=== PATIENT | female | born 1980 | race Two or more races ===

== ENCOUNTER 2020-07-15 14:29 | Outpatient (REF) | payer OTHER, SELFPAY | END 2020-07-15 14:30 | disposition home or self-care (01) | LOC: HO.LAB 14:29 | PROVIDERS: PCP Internal Medicine; Visit Provider Internal Medicine | DX: Z20.828 Contact with and (suspected) exposure to other viral communicable diseases (principal) | CPT/HCPCS: C9803; U0003 ==

== ENCOUNTER 2020-07-22 17:24 | Outpatient (REF) | payer OTHER, SELFPAY | END 2020-07-22 17:25 | disposition home or self-care (01) | LOC: HO.LAB 17:24 | PROVIDERS: Visit Provider Internal Medicine | DX: Z20.828 Contact with and (suspected) exposure to other viral communicable diseases (principal) | CPT/HCPCS: C9803; U0003 ==

== ENCOUNTER → 2022-01-05 15:14 | Outpatient (BNVA) | payer OTHER, SELFPAY | PROVIDERS: Visit Provider Internal Medicine | DX: Z51.81 Encounter for therapeutic drug level monitoring (principal); F11.20 Opioid dependence, uncomplicated | CPT/HCPCS: 80305 ==

== ENCOUNTER 2022-01-05 17:34 | Outpatient (REF) | payer OTHER, SELFPAY ==
[2022-01-05 18:09] LABS: Fentanyl, urine POSITIVE (Not Detect)
== END 2022-01-05 17:35 | disposition home or self-care (01) ==
LOC: HO.LNP 17:34
PROVIDERS: Visit Provider Internal Medicine
DX: F11.20 Opioid dependence, uncomplicated (principal)
CPT/HCPCS: 80307; 99202

== ENCOUNTER → 2022-01-14 14:44 | Outpatient (BNVA) | payer OTHER, SELFPAY | PROVIDERS: Visit Provider Internal Medicine | DX: F11.20 Opioid dependence, uncomplicated (principal) | CPT/HCPCS: 80305; 99212 ==

== ENCOUNTER → 2022-01-21 14:01 | Outpatient (BNVA) | payer OTHER, SELFPAY | PROVIDERS: Visit Provider Internal Medicine | DX: F11.20 Opioid dependence, uncomplicated (principal) | CPT/HCPCS: 80305; 99212 ==

== ENCOUNTER 2022-03-09 15:41 | Outpatient (REF) | payer OTHER, SELFPAY ==
[2022-03-09 18:38] LABS: CT PCR NOT DETECTED (Not Detect.); NG PCR NOT DETECTED (Not Detect.)
[2022-03-12 14:37] LABS: HPV mRNA E6/E7 rflx Not Detected (Not Detected)
== END 2022-03-09 15:42 | disposition home or self-care (01) ==
LOC: HO.LAB 15:41
PROVIDERS: Visit Provider Advanced Practice Midwife
DX: Z01.419 Encounter for gynecological examination (general) (routine) without abnormal findings (principal); Z11.51 Encounter for screening for human papillomavirus (HPV)
CPT/HCPCS: 87491; 87591; 87624; 88142

== ENCOUNTER → 2022-05-24 13:26 | Outpatient (BNVA) | payer OTHER, SELFPAY | PROVIDERS: Visit Provider Advanced Practice Midwife | DX: N64.59 Other signs and symptoms in breast (principal) | CPT/HCPCS: 99212 ==

== ENCOUNTER 2022-05-26 09:21 | Outpatient (REF) | payer OTHER, SELFPAY ==
--- NOTE | ~2022-05-26 | MM_ITS ---
EXAMINATION: MM DIAGNOSTIC DIGITAL BREAST TOMOSYNTHESIS, BILATERAL US TARGETED BREAST, LEFT CLINICAL INFORMATION: Left breast lump. The lifetime risk of breast cancer based on the Tyrer-Cuzick Model is 11.9%. COMPARISON: Mammography: 03/27/2018 and studies dating back to 11/11/2009. TECHNIQUE: Digital breast tomosynthesis is performed in both the craniocaudal and mediolateral oblique views along with computer-aided detection (CAD). Synthesized 2D images are generated from the tomosynthesis. Targeted left breast ultrasound. FINDINGS: The breasts are extremely dense, which lowers the sensitivity of mammography (ACR BI-RADS breast composition category D). No new abnormal dominant mass or suspicious grouping of microcalcifications is identified. There is again noted to be a medial periareolar density measuring approximately 1.4 x 0.7 x 0.9 cm in size which is stable compared to the previous studies dating back to 2009. Targeted ultrasound evaluation again demonstrates what appears to be an encapsulated oval heterogeneous lesion with hypoechoic portions as well as hyperechoic regions with the appearance of fat. This has the appearance of a hamartoma and is unchanged from previous ultrasound of 01/22/2018 and 06/16/2015. It measures approximately 1.5 x 0.6 x 1.9 cm in size. There is a small amount of internal vascularity. Lesion is wider than it is tall. MM/MM tomosynthesis diagnostic BI IMPRESSION: There are no significant changes from prior study. The left breast palpable abnormality medial periareolar region represents a stable hamartoma which has been worked up multiple times in the past. ASSESSMENT: BI-RADS 2: Benign RECOMMENDATION: Routine annual mammography screening. This patient's information was entered into a reminder system with a target due date for their next mammogram.
== END 2022-05-26 09:22 | disposition home or self-care (01) ==
LOC: HO.MAMMO 09:21
PROVIDERS: PCP Student in an Organized Health Care Education/Training Program; Visit Provider Advanced Practice Midwife
DX: N64.59 Other signs and symptoms in breast (principal)
CPT/HCPCS: 76642; 77062; 77066

== ENCOUNTER → 2022-06-01 10:13 | Outpatient (BNVA) | payer OTHER, SELFPAY | PROVIDERS: PCP Student in an Organized Health Care Education/Training Program; Visit Provider Advanced Practice Midwife | DX: N63.20 Unspecified lump in the left breast, unspecified quadrant (principal); R03.0 Elevated blood-pressure reading, without diagnosis of hypertension | CPT/HCPCS: 99212 ==

== ENCOUNTER 2023-03-15 14:15 | Outpatient (AMB) | payer OTHER, SELFPAY ==
--- NOTE | 2023-03-15 14:19 | MHC.OFFVIS ---
Intake Vital Signs 03/15/23 14:25 BP 130/78 Blood Pressure Location Lt radial Position Sitting Pulse 69 Pulse Source Pulse Oximeter Pulse Oximetry (%) 98 Oxygen Delivery Method Room Air Intake Visit Reasons: MAT Restart Intake Note: The patient presents for a restart Gasateria Attendant Required: No Allergies acetaminophen [From Vicodin] Allergy (Severe, Verified 03/15/23 14:28) Hives, Tongue swelling hydrocodone [From Vicodin] Allergy (Severe, Verified 03/15/23 14:28) Hives, Tongue swelling azithromycin [AZITHROMYCIN] Allergy (Unknown, Verified 03/15/23 14:28) Unknown erythromycin base [ERYTHROMYCIN BASE] Allergy (Unknown, Verified 03/15/23 14:28) Liver Inflammation Sulfa (Sulfonamide Antibiotics) Allergy (Unknown, Verified 03/15/23 14:28) Hives sulfamethoxazole [From Bactrim] Allergy (Unknown, Verified 03/15/23 14:28) Liver Inflammation trimethoprim [From Bactrim] Allergy (Unknown, Verified 03/15/23 14:28) Liver Inflammation Do you need a note to return to daycare/school/sports/work: No HPI MAT Restart HPI Details Patient presents for OUD intake and evaluation Seen last year by by [facility] Buying 30mg pressed pills 3-4 days Oxycodone for almost 5 years following numerous surgeries Last year overdose and entered treatment No history of ATS admission 2 lifetime overdoses Stopped 3 days ag, extrememly sick took one pill yesterday at 9pm Family hx: Father in recovery from OUD Medical history -HTN -Depression and anxiety (providers at [facility]) -asthma Need medication list Patient tearful, frustrated with withdrawal sx and challenges of stopping opioids. Discussed induction methods, patient agreeable to q2 hour dosing comfort medications reviewed with patient. [facility] Medical History Abnormal Pap smear of cervix Opioid use disorder Family History Father Stroke Heart attack Diabetes Maternal Aunt Breast cancer Social History Household Members: Spouse and Children Housing: House Alcohol intake: never Patient Tobacco Use Status: Current everyday Tobacco user Tobacco use type: Cigarette Cigarettes Per Day: 6 Years Smoked: 20 Sexual orientation: Straight/Heterosexual Gender identity: Female Review of Systems Const Reports as per HPI, Reports body aches, Reports chills and Reports difficulty sleeping Physical Exam Vital Signs: Last Vital Signs Pulse 69 03/15/23 14:25 BP 130/78 03/15/23 14:25 Pulse Ox 98 03/15/23 14:25 Oxygen Delivery Method Room Air 03/15/23 14:25 Const General: cooperative, anxious and well groomed Nutritional Appearance: average body habitus Assessment & Plan Assessment & Plan (1) Opioid use disorder: Code(s): F11.90 - Opioid use, unspecified, uncomplicated Plan: suboxone indiction per instructions comfort medications prior to starting induction follow up via phone in 2 days to assess Coding Level of Care Code New Pt Level 4 (49932) Diagnoses Opioid use disorder F11.90
[2023-03-15 14:25] VITALS: BP 130/78; PULSE 69; O2SAT 98
== END 2023-03-15 15:24 | disposition home or self-care (01) ==
LOC: HO.HCC 14:15
PROVIDERS: PCP Student in an Organized Health Care Education/Training Program; Visit Provider Nurse Practitioner Psychiatric/Mental Health
DX: F11.90 Opioid use, unspecified, uncomplicated (principal)
CPT/HCPCS: 99204

== ENCOUNTER → 2023-03-15 14:15 | Outpatient (BNVA) | payer OTHER, SELFPAY | PROVIDERS: PCP Student in an Organized Health Care Education/Training Program; Visit Provider Nurse Practitioner Psychiatric/Mental Health | DX: Z51.81 Encounter for therapeutic drug level monitoring (principal); F11.20 Opioid dependence, uncomplicated | CPT/HCPCS: 99202 ==

== ENCOUNTER 2023-03-20 14:15 | Outpatient (AMB) | payer OTHER, SELFPAY ==
--- NOTE | 2023-03-20 14:16 | A.OFFVIS_ITS ---
Intake Vital Signs 03/20/23 14:27 BP 126/88 Blood Pressure Location Lt radial Position Sitting Pulse 71 Pulse Source Pulse Oximeter Pulse Oximetry (%) 99 Oxygen Delivery Method Room Air Intake Visit Reasons: MAT Visit Intake Note: the patient is here for a mat visit Stem Crusher Required: No Allergies acetaminophen [From Vicodin] Allergy (Severe, Verified 03/20/23 14:16) Hives, Tongue swelling hydrocodone [From Vicodin] Allergy (Severe, Verified 03/20/23 14:16) Hives, Tongue swelling azithromycin [AZITHROMYCIN] Allergy (Unknown, Verified 03/20/23 14:16) Unknown erythromycin base [ERYTHROMYCIN BASE] Allergy (Unknown, Verified 03/20/23 14:16) Liver Inflammation Sulfa (Sulfonamide Antibiotics) Allergy (Unknown, Verified 03/20/23 14:16) Hives sulfamethoxazole [From Bactrim] Allergy (Unknown, Verified 03/20/23 14:16) Liver Inflammation trimethoprim [From Bactrim] Allergy (Unknown, Verified 03/20/23 14:16) Liver Inflammation Do you need a note to return to daycare/school/sports/work: No HPI MAT Visit HPI Details Patient presents for follow up Has been taking 2mg BID Appetite improving Still having withdrawal sx. Encouraged patient to increase dose Tearful, sharing challenges with early recovery and conflict within family. [facility] Medical History Abnormal Pap smear of cervix Opioid use disorder Family History Father Stroke Heart attack Diabetes Maternal Aunt Breast cancer Social History Household Members: Spouse and Children Housing: House Alcohol intake: never Patient Tobacco Use Status: Current everyday Tobacco user Tobacco use type: Cigarette Cigarettes Per Day: 6 Years Smoked: 20 Sexual orientation: Straight/Heterosexual Gender identity: Female Review of Systems Const Reports as per HPI and Reports no additional complaints Physical Exam Vital Signs: Last Vital Signs Pulse 71 03/20/23 14:27 BP 126/88 03/20/23 14:27 Pulse Ox 99 03/20/23 14:27 Oxygen Delivery Method Room Air 03/20/23 14:27 Const General: cooperative, healthy appearing and no acute distress Orientation/consciousness: patient oriented x3 Neuro General: patient oriented x3 Psych Appearance: well kempt Affect: normal affect Attitude: cooperative Thought process: Normal thought process present Thought content: Normal thought content present Insight: Good insight present (Psych) Judgement: Good judgement present (Psych) Results AMB 14 Panel Urine Drug Screen Urine Marijuana (THC) Positive Last Edit by Olive Tay CMA on 03/20/23 14:30 Urine Cocaine Positive Last Edit by Olive Tay CMA on 03/20/23 14:30 Urine Morphine Negative Last Edit by Olive Tay CMA on 03/20/23 14:30 Urine Methamphetamine Negative Last Edit by Olive Tay CMA on 03/20/23 14:30 Urine Amphetamine Negative Last Edit by Olive Tay CMA on 03/20/23 14:3 0 Urine Benzodiazepine Negative Last Edit by Olive Tay CMA on 03/20/23 14:30 Urine Barbiturates Negative Last Edit by Olive Tay CMA on 03/20/23 14: 30 Urine Methadone Negative Last Edit by Olive Tay CMA on 03/20/23 14:30 Urine Buprenorphine Positive Last Edit by Olive Tay CMA on 03/20/23 14 :30 Urine Tricyclic Antidepressant Negative Last Edit by Olive Tay CMA on 03/20/23 14:30 Urine MDMA Negative Last Edit by Olive Tay CMA on 03/20/23 14:30 Urine Oxycodone Negative Last Edit by Olive Tay CMA on 03/20/23 14:30 Urine Phencyclidine Negative Last Edit by Olive Tay CMA on 03/20/23 14 :30 Urine Propoxyphene Negative Last Edit by Olive Tay CMA on 03/20/23 14: 30 Results Reviewed Results Reviewed: Laboratory Last Values POC Urine Buprenorphine Positive 03/20/23 14:28 POC Urine Morphine Negative 03/20/23 14:28 POC Urine Oxycodone Negative 03/20/23 14:28 POC Urine Methadone Negative 03/20/23 14:28 POC Urine Propoxyphene Negative 03/20/23 14:28 POC Urine Barbiturates Negative 03/20/23 14:28 POC U Tricyclic Antidpr Negative 03/20/23 14:28 POC Urine PCP Negative 03/20/23 14:28 POC Ur Amphetamines Negative 03/20/23 14:28 POC Ur Methamphetamine Negative 03/20/23 14:28 POC Urine MDMA Negative 03/20/23 14:28 POC Ur Benzodiazepine Negative 03/20/23 14:28 POC Urine Cocaine Positive 03/20/23 14:28 POC Ur Marijuana (THC) Positive 03/20/23 14:28 Assessment & Plan Assessment & Plan (1) Opioid use disorder: Code(s): F11.90 - Opioid use, unspecified, uncomplicated Plan: * increase suboxone dose to 4mg TID * risk reduction discussion * follow up 3 weeks (due to preplanned vacation for patient) Orders: Orders AMB 14 Panel Urine Drug Screen 03/20/23 Z51.81 - Encounter for therapeutic drug level monitoring Medications: New buprenorphine-naloxone 4-1 mg (Suboxone) 1 film sublingual TID 64 ea 0RF Discontinued buprenorphine-naloxone 8-2 mg (Suboxone) Discontinued Reason: Doctor's Order 1 film sublingual BID 10 ea 0RF Coding Level of Care Code Est Pt Level 4 (58290) Diagnoses Opioid use disorder F11.90
[2023-03-20 14:27] VITALS: BP 126/88; PULSE 71; O2SAT 99
== END 2023-03-20 15:01 | disposition home or self-care (01) ==
LOC: HO.HCC 14:15
PROVIDERS: PCP Student in an Organized Health Care Education/Training Program; Visit Provider Nurse Practitioner Psychiatric/Mental Health
DX: F11.90 Opioid use, unspecified, uncomplicated (principal)
CPT/HCPCS: 99214

== ENCOUNTER → 2023-03-20 14:15 | Outpatient (BNVA) | payer OTHER, SELFPAY | PROVIDERS: PCP Student in an Organized Health Care Education/Training Program; Visit Provider Nurse Practitioner Psychiatric/Mental Health | DX: F11.20 Opioid dependence, uncomplicated (principal); F17.210 Nicotine dependence, cigarettes, uncomplicated; Z51.81 Encounter for therapeutic drug level monitoring; Z79.899 Other long term (current) drug therapy | CPT/HCPCS: 80305; 99212 ==

== ENCOUNTER 2023-04-20 14:27 | Outpatient (AMB) | payer OTHER, SELFPAY ==
--- NOTE | 2023-04-20 14:32 | A.OFFVIS_ITS ---
Intake Vital Signs 04/20/23 14:47 BP 130/72 Blood Pressure Location Lt radial Position Sitting Pulse 68 Pulse Source Pulse Oximeter Pulse Oximetry (%) 96 Oxygen Delivery Method Room Air Intake Visit Reasons: MAT Visit Intake Note: the patient presents for a mat visit Machine Fastener Required: No Allergies acetaminophen [From Vicodin] Allergy (Severe, Verified 04/20/23 14:35) Hives, Tongue swelling hydrocodone [From Vicodin] Allergy (Severe, Verified 04/20/23 14:35) Hives, Tongue swelling azithromycin [AZITHROMYCIN] Allergy (Unknown, Verified 04/20/23 14:35) Unknown erythromycin base [ERYTHROMYCIN BASE] Allergy (Unknown, Verified 04/20/23 14:35) Liver Inflammation Sulfa (Sulfonamide Antibiotics) Allergy (Unknown, Verified 04/20/23 14:35) Hives sulfamethoxazole [From Bactrim] Allergy (Unknown, Verified 04/20/23 14:35) Liver Inflammation trimethoprim [From Bactrim] Allergy (Unknown, Verified 04/20/23 14:35) Liver Inflammation Do you need a note to return to daycare/school/sports/work: No HPI MAT Visit HPI Details Patient presents for OUD treatment follow up Rpeorts that she continues to abstain from opiates Had teeth pulled earlier in the day, face appearing swollen 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 [facility] Medical History Abnormal Pap smear of cervix Opioid use disorder Family History Father Stroke Heart attack Diabetes Maternal Aunt Breast cancer Social History Household Members: Spouse and Children Housing: House Alcohol intake: never Patient Tobacco Use Status: Current everyday Tobacco user Tobacco use type: Cigarette Cigarettes Per Day: 6 Years Smoked: 20 Sexual orientation: Straight/Heterosexual Gender identity: Female Review of Systems Const Reports as per HPI and Reports no additional complaints Physical Exam Vital Signs: Last Vital Signs Pulse 68 04/20/23 14:47 BP 130/72 04/20/23 14:47 Pulse Ox 96 04/20/23 14:47 Oxygen Delivery Method Room Air 04/20/23 14:47 Const General: cooperative Psych Appearance: well kempt Speech and movement: Clear speech present Affect: Sad affect present Results AMB 14 Panel Urine Drug Screen Urine Marijuana (THC) Positive Last Edit by Olive Tay CMA on 04/20/23 15:31 Urine Cocaine Positive Last Edit by Olive Tay CMA on 04/20/23 15:31 Urine Morphine Negative Last Edit by Olive Tay CMA on 04/20/23 15:31 Urine Methamphetamine Negative Last Edit by Olive Tay CMA on 04/20/23 15:31 Urine Amphetamine Negative Last Edit by Olive Tay CMA on 04/20/23 15:3 1 Urine Benzodiazepine Negative Last Edit by Olive Tay CMA on 04/20/23 15:31 Urine Barbiturates Negative Last Edit by Olive Tay CMA on 04/20/23 15: 31 Urine Methadone Negative Last Edit by Olive Tay CMA on 04/20/23 15:31 Urine Buprenorphine Positive Last Edit by Olive Tay CMA on 04/20/23 15 :31 Urine Tricyclic Antidepressant Negative Last Edit by Olive Tay CMA on 04/20/23 15:31 Urine MDMA Negative Last Edit by Olive Tay CMA on 04/20/23 15:31 Urine Oxycodone Negative Last Edit by Olive Tay CMA on 04/20/23 15:31 Urine Phencyclidine Negative Last Edit by Olive Tay CMA on 04/20/23 15 :31 Urine Propoxyphene Negative Last Edit by Olive Tay CMA on 04/20/23 15: 31 Results Reviewed Results Reviewed: Laboratory Last Values POC Urine Buprenorphine Positive 04/20/23 14:35 POC Urine Morphine Negative 04/20/23 14:35 POC Urine Oxycodone Negative 04/20/23 14:35 POC Urine Methadone Negative 04/20/23 14:35 POC Urine Propoxyphene Negative 04/20/23 14:35 POC Urine Barbiturates Negative 04/20/23 14:35 POC U Tricyclic Antidpr Negative 04/20/23 14:35 POC Urine PCP Negative 04/20/23 14:35 POC Ur Amphetamines Negative 04/20/23 14:35 POC Ur Methamphetamine Negative 04/20/23 14:35 POC Urine MDMA Negative 04/20/23 14:35 POC Ur Benzodiazepine Negative 04/20/23 14:35 POC Urine Cocaine Positive 04/20/23 14:35 POC Ur Marijuana (THC) Positive 04/20/23 14:35 Assessment & Plan Assessment & Plan (1) Opioid use disorder: Code(s): F11.90 - Opioid use, unspecified, uncomplicated Plan: * continue suboxone at current dose * followup 2 weeks Orders: Orders AMB 14 Panel Urine Drug Screen 04/20/23 Z51.81 - Encounter for therapeutic drug level monitoring Medications: Refilled buprenorphine-naloxone 4-1 mg (Suboxone) 1 film sublingual TID 36 ea 0RF Coding Level of Care Code Est Pt Level 3 (78627) Diagnoses Opioid use disorder F11.90
[2023-04-20 14:47] VITALS: BP 130/72; PULSE 68; O2SAT 96
== END 2023-04-20 15:28 | disposition home or self-care (01) ==
LOC: HO.HCC 14:27
PROVIDERS: PCP Student in an Organized Health Care Education/Training Program; Visit Provider Nurse Practitioner Psychiatric/Mental Health
DX: F11.90 Opioid use, unspecified, uncomplicated (principal)
CPT/HCPCS: 99213

== ENCOUNTER → 2023-04-20 14:27 | Outpatient (BNVA) | payer OTHER, SELFPAY | PROVIDERS: PCP Student in an Organized Health Care Education/Training Program; Visit Provider Nurse Practitioner Psychiatric/Mental Health | DX: F11.20 Opioid dependence, uncomplicated (principal) | CPT/HCPCS: 80305; 99212 ==

== ENCOUNTER 2023-09-29 10:55 | Outpatient (AMB) | payer OTHER, SELFPAY ==
[2023-09-29 10:59] VITALS: BP 120/70
--- NOTE | 2023-09-29 10:59 | MHC.AM.SUB ---
Intake Vital Signs 09/29/23 10:59 BP 120/70 Blood Pressure Location Rt brachial Position Sitting Comment pulse ox not working due to pts fingernails. Good color and good cap refil Intake Visit Reasons: MAT Restart Allergies acetaminophen [From Vicodin] Allergy (Severe, Verified 04/20/23 14:35) Hives, Tongue swelling hydrocodone [From Vicodin] Allergy (Severe, Verified 04/20/23 14:35) Hives, Tongue swelling azithromycin [AZITHROMYCIN] Allergy (Unknown, Verified 04/20/23 14:35) Unknown erythromycin base [ERYTHROMYCIN BASE] Allergy (Unknown, Verified 04/20/23 14:35) Liver Inflammation Sulfa (Sulfonamide Antibiotics) Allergy (Unknown, Verified 04/20/23 14:35) Hives sulfamethoxazole [From Bactrim] Allergy (Unknown, Verified 04/20/23 14:35) Liver Inflammation trimethoprim [From Bactrim] Allergy (Unknown, Verified 04/20/23 14:35) Liver Inflammation Medication List - Last Reconciled 09/29/23 by Shikha Man, CELLULAR EQUIPMENT REPAIRER buprenorphine-naloxone 4-1 mg (Suboxone) 1 film sublingual TID clonidine HCl 0.1 mg PO BID ondansetron 4 mg PO Q6H PRN 4 days tizanidine 4 mg PO TID PRN HPI MAT Restart HPI Details Patient presents to re-establish care Reports she had not been using any opiates for about 4 months -- Recurrence of use 2 weeks ago Has been using 1 30mg percocet daily (likely pressed pill) Patient tearful during visit Last use reported as being last evening. Discussed restarting suboxone, importance of withdrawal sx being present Reviewed comfort medications PFSH Medical History Abnormal Pap smear of cervix Opioid use disorder Family History Father Stroke Heart attack Diabetes Maternal Aunt Breast cancer Social History Household Members: Spouse and Children Housing: House Alcohol intake: never Patient Tobacco Use Status: Current everyday Tobacco user Tobacco use type: Cigarette Cigarettes Per Day: 6 Years Smoked: 20 Sexual orientation: Straight/Heterosexual Gender identity: Female Review of Systems Const Reports as per HPI, Reports chills, Reports difficulty sleeping, Reports lethargy and Reports malaise Physical Exam Vital Signs: Last Vital Signs BP 120/70 09/29/23 10:59 Const General: cooperative and anxious Nutritional Appearance: thin Limitations: no limitations Assessment & Plan Assessment & Plan (1) Opioid use disorder: Code(s): F11.90 - Opioid use, unspecified, uncomplicated Plan: restart suboxone --provided written and verbal instruction comfort medications refilled--encouraged to start these once she got home patient declined narcan, states she has some at home follow up one week Medications: New tizanidine 4 mg PO TID PRN 20 caps 0RF muscle spasticity Changed From clonidine HCl 0.1 mg PO TID 4 days 12 tabs 0RF To clonidine HCl 0.1 mg PO BID 10 tabs 0RF Refilled ondansetron 4 mg PO Q6H 4 days PRN 20 tabs 0RF nausea and vomiting buprenorphine-naloxone 4-1 mg (Suboxone) 1 film sublingual TID 21 ea 0RF Discontinued hydroxyzine pamoate (Vistaril) Discontinued Reason: Patient Completed Course 25 mg PO TID 4 days PRN 12 caps 0RF itching gabapentin Discontinued Reason: Patient Completed Course 100 mg PO TID 21 caps 0RF Coding Level of Care Code Est Pt Level 4 (70659) Diagnoses Opioid use disorder F11.90
== END 2023-09-29 13:23 | disposition home or self-care (01) ==
PROVIDERS: PCP Student in an Organized Health Care Education/Training Program; Visit Provider Nurse Practitioner Psychiatric/Mental Health
DX: F11.90 Opioid use, unspecified, uncomplicated (principal)
CPT/HCPCS: 99214

== ENCOUNTER → 2023-09-29 10:55 | Outpatient (BNVA) | payer OTHER, SELFPAY | PROVIDERS: PCP Student in an Organized Health Care Education/Training Program; Visit Provider Nurse Practitioner Psychiatric/Mental Health | DX: F11.20 Opioid dependence, uncomplicated (principal) | CPT/HCPCS: 99212 ==

== ENCOUNTER 2024-01-19 08:01 | Outpatient (REF) | payer OTHER, SELFPAY ==
[2024-01-19 15:44] LABS: Bacterial Vaginosis PCR POSITIVE (Negative); Candida Group PCR NOT DETECTED (Not Detect); Candida glab krusei PCR NOT DETECTED (Not Detect); Trichomonas vaginalis PCR NOT DETECTED (Not Detect)
[2024-01-19 16:33] LABS: CT PCR NOT DETECTED (Not Detect.); NG PCR NOT DETECTED (Not Detect.)
== END 2024-01-19 08:02 | disposition home or self-care (01) ==
LOC: HO.LNP 08:01
PROVIDERS: PCP Student in an Organized Health Care Education/Training Program; Visit Provider Advanced Practice Midwife
DX: Z01.419 Encounter for gynecological examination (general) (routine) without abnormal findings (principal); Z20.2 Contact with and (suspected) exposure to infections with a predominantly sexual mode of transmission
CPT/HCPCS: 0352U; 0353U; 99396

== ENCOUNTER 2024-01-19 08:01 | Outpatient (AMB) | payer OTHER, SELFPAY ==
--- NOTE | 2024-01-19 08:08 | A.OFFVIS_ITS ---
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 Intake Note: wants std screens Pump Press Operator Required: No Information Interpreted: non-clinical & clinical Surveyor Geophysical Prospecting: Surveyor Geophysical Prospecting Present (Lorri Ricardo FRIEDMAN) Accompanied by: Self / Same As Patient Allergies acetaminophen [From Vicodin] Allergy (Severe, Verified 01/19/24 08:13) Hives, Tongue swelling hydrocodone [From Vicodin] Allergy (Severe, Verified 01/19/24 08:13) Hives, Tongue swelling azithromycin [AZITHROMYCIN] Allergy (Unknown, Verified 01/19/24 08:13) Unknown erythromycin base [ERYTHROMYCIN BASE] Allergy (Unknown, Verified 01/19/24 08:13) Liver Inflammation Sulfa (Sulfonamide Antibiotics) Allergy (Unknown, Verified 01/19/24 08:13) Hives sulfamethoxazole [From Bactrim] Allergy (Unknown, Verified 01/19/24 08:13) Liver Inflammation trimethoprim [From Bactrim] Allergy (Unknown, Verified 01/19/24 08:13) Liver Inflammation Is last menstrual period known: No (mirena) HPI Comments Details: She is a premenopausal woman presenting for annual examination. Doing well with no concerns. She reports she has a history of a breast lump followed at [facility] on the left side no records are available for today. She tries to eat healthy and stays active with exercise. Mirena IUD user, no menses inserted January 12 2018. Currently is sexually active. She denies vaginal itching and irritation. STI screening offered; she accepts. Denies family history of ovarian or colon cancer. FH breast cancer-M.aunt. Last pap smear 2021, negative. History of EDA 1 in 2001. Mammogram: 2022. 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 Sexual orientation: Straight/Heterosexual Gender identity: Female Female Reproductive History Menstrual control method: progestin IUCD Total pregnancies: 6 Full term: 3 Number of Living Children: 3 Ab spontaneous: 2 Ectopics: 1 Date of last pap smear: 03/10/22 Date of Mammogram: 05/26/22 Review of Systems Const All systems reviewed & are unremarkable except as noted in HPI and below Reports as per HPI Eyes Reports no additional complaints ENT Reports no additional complaints Card Reports no additional complaints Resp Reports no additional complaints GI Reports as per HPI and Reports no additional complaints Reports as per HPI Musc Reports no additional complaints Skin/Breast Reports as per HPI Neuro Reports no additional complaints Psych Reports no additional complaints Endo Reports no additional complaints Frankie/Lymph Reports no additional complaints Aller/Immun Reports no additional complaints Physical Exam Vital Signs: Last Vital Signs BP 118/68 01/19/24 08:10 BMI result Body Mass Index 26.6 Const General: cooperative, healthy appearing, no acute distress, well developed and alert Orientation/consciousness: patient oriented x3 HEENT Head: Yes normal to inspection Eyes General: appearance normal, both eyes and all related structures Neck Neck: Yes normal visual inspection Thyroid: Thyroid normal Chest Chest palpation & inspection: normal inspection of the chest, mass (Left breast medial aspect) and other (no puckering, dimpling, peau de orange, retraction, discharge, masses) Breast/axilla inspection: normal inspection of the breasts Breast/axilla palpation: normal palpation of the breasts Resp Effort & Inspection: normal respiratory effort GI Inspection: Yes normal to inspection Palpation (GI): Soft to palpation Rectal Exam - Female: deferred General: Yes bladder normal to palpation External Female Exam: normal external appearance and normal appearance of the urethra Speculum Exam - Vagina: normal appearance of the vagina, normal palpation and normal vaginal discharge Speculum Exam - Cervix: normal appearance of the cervix and normal palpation Bimanual exam- vagina & uterus: normal bimanual exam, normal palpation, uterine size normal, bladder normal to palpation, normal palpation and non-tender Bimanual Exam- Adnexa, other: no masses Skin General skin exam: no rashes or lesions noted Rashes: no rashes Neuro General: patient oriented x3 Cognition (Neuro): normal cognition Extrem General: Yes normal to inspection Psych Attitude: cooperative Thought process: Normal thought process present Assessment & Plan Assessment & Plan (1) Encounter for well woman exam with routine gynecological exam: Code(s): Z01.419 - Encounter for gynecological examination (general) (routine) without abnormal findings Category: Medical (2) Breast lump: Code(s): N63.0 - Unspecified lump in unspecified breast Category: Medical Qualifiers: Laterality: left Breast mass location: unspecified quadrant Qualified Code(s): N63.20 - Unspecified lump in the left breast, unspecified quadrant Plan Discussed: Current recommendations for pap smears per ASCCP guidelines. Breast awareness and periodic breast exams. Maintain a healthy lifestyle including a well balanced diet and routine exercise. Diagnostic mammogram and left breast ultrasound, Mammogram yearly. Sign release for medical records for breast ultrasound, MRI, biopsy pathology reports and provider notes from [facility]. Return to the office pending results for plan of care. Colonoscopy >45, or at risk sooner. Patient verbalizes understanding and agrees to the plan of care. She was given opportunity to ask questions and all questions were answered to the best of my ability. 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 This note is constructed using voice recognition software. While every effort has been made to ensure accuracy, hot dip plater errors may have been included. Orders: Orders HIV Ab/Ag Today Z20.2 - Contact with and (suspected) exposure to infections with a predominantly sexual mode of transmission Hepatitis B Core Antibody Today Z20.2 - Contact with and (suspected) exposure to infections with a predominantly sexual mode of transmission MM tomosynthesis diagnostic BI Today N63.0 - Unspecified lump in unspecified breast, Z12.31 - Encounter for screening mammogram for malignant neoplasm of breast CT NG by PCR Today Z01.419 - Encounter for gynecological examination (general) (routine) without abnormal findings Bacterial Vaginosis Panel Today Z01.419 - Encounter for gynecological examination (general) (routine) without abnormal findings Hepatitis C Antibody Reflex Today Z20.2 - Contact with and (suspected) exposure to infections with a predominantly sexual mode of transmission Syphilis Screen Today Z20.2 - Contact with and (suspected) exposure to infections with a predominantly sexual mode of transmission US breast LT complete Today N63.0 - Unspecified lump in unspecified breast Coding Level of Care Code Est Pt Prev Care 40-64y(41753) Diagnoses Encounter for well woman exam with routine gynecological exam Z01.419 Mass of left breast, unspecified quadrant N63.20 Laterality: left Breast mass location: unspecified quadrant
[2024-01-19 08:10] VITALS: BP 118/68; BMI 26.6
== END 2024-01-19 08:43 | disposition home or self-care (01) ==
PROVIDERS: PCP Student in an Organized Health Care Education/Training Program; Visit Provider Advanced Practice Midwife
DX: Z01.419 Encounter for gynecological examination (general) (routine) without abnormal findings (principal); N63.20 Unspecified lump in the left breast, unspecified quadrant
CPT/HCPCS: 99396

== ENCOUNTER → 2024-02-16 11:00 | Outpatient (BNV) | payer OTHER, SELFPAY | PROVIDERS: Visit Provider Radiology Diagnostic Radiology | DX: N63.25 Unspecified lump in the left breast, overlapping quadrants (principal) | CPT/HCPCS: 76642; 77062; 77066 ==

== ENCOUNTER 2024-02-16 11:19 | Outpatient (REF) | payer OTHER, SELFPAY ==
--- NOTE | ~2024-02-16 | MM_ITS ---
EXAMINATION: MM DIAGNOSTIC DIGITAL BREAST TOMOSYNTHESIS, BILATERAL US BREAST LIMITED, LEFT MAMMOGRAPHY: CLINICAL INFORMATION: Palpable abnormality left breast periareolar 9:00 axis, previously present, but perceptibly increasing in size since prior exam 05/26/2022 as per patient. COMPARISON: Mammography: 05/16/2022, 03/27/2018, 01/22/2018, dating back to 06/16/2015. MRI: Bilateral breast 03/27/2018, 02/19/2018. ULTRASOUND: Left 05/26/2022, left 06/16/2015 TECHNIQUE: Digital breast tomosynthesis is performed in both the craniocaudal and mediolateral oblique views along with computer-aided detection (CAD). Synthesized 2D images are generated from the tomosynthesis. In addition to standard views, full-field 3-D left mediolateral view was obtained, as well as 3-D spot compression left MLO and cc views. FINDINGS: The breasts are extremely dense, which lowers the sensitivity of mammography (ACR BI-RADS breast composition Category d). There is redemonstration of a mass lesion in the periareolar 9:00 axis left breast, which has been marked by the technologist as the palpable abnormality. This mass is circumscribed, contains definite fat density as well as soft tissue density, and has increased mildly in size since 2021, currently measuring approximately 2.0 x 1.9 x 2.4 cm (previously measuring approximately 1.6 x 0.6 x 1.9 cm as per prior report). Given fat density and circumscribed margins, this is consistent with a hamartoma, which has been previously diagnosed on prior breast MRI in 2018 and other studies dating back to 2014. There are bilateral post benign biopsy clips. Otherwise, There are no suspicious masses, suspicious grouped calcifications, or areas of architectural distortion in either breast which can be distinguished from the extremely dense breast parenchyma. There is a stable asymmetric density in the axillary tail region of the left breast. The overall parenchymal pattern is stable from prior exams. There is no skin abnormality or abnormal axillary lymph nodes. ULTRASOUND: CLINICAL INFORMATION: As above. COMPARISON: Ultrasound: Left 05/26/2022, left 06/16/2015 TECHNIQUE: Targeted sonographic evaluation was performed using a high frequency linear transducer. Attention was given to the 9:00 axis in the left breast periareolar region, in the region of increasing palpable concern. Selected archived documentation. FINDINGS: LEFT BREAST: In the 9:00 axis left breast periareolar location, there is a circumscribed, wider than tall oval mass with mixed echogenicity, measuring 2.4 x 0.7 x 1.7 cm. This is consistent with a hamartoma and is benign. No internal color Doppler signal, and there is good through transmission. Recommend clinical management if warranted. MM/MM tomosynthesis diagnostic BI IMPRESSION: -There are no findings suspicious for malignancy in either breast. -There is extremely dense breast parenchyma. -Palpable focus of concern correlates with the known hamartoma in the 9:00 axis periareolar left breast, which has mildly increased in size when compared with 202 as discussed above (current measurements approximately 2.4 x 0.7 x 1.7 cm, previously measuring approximately 1.6 x 0.6 x 1.9 cm). Recommend clinical management if warranted. -Otherwise, recommend the patient resume routine annual screening to include both breasts. OVERALL ASSESSMENT: Mammography: BI-RADS 2 - Benign Findings Ultrasound: BI-RADS 2 - Benign Findings RECOMMENDATION: 1. Patient should be managed based on the clinical impression. 2. Otherwise, routine annual screening mammography. Results were provided to the patient at time of visit by the technologist. This patient's information was entered into a reminder system with a target due date for their next mammogram.
== END 2024-02-16 11:20 | disposition home or self-care (01) ==
LOC: HO.MAMMO 11:19
PROVIDERS: Visit Provider Advanced Practice Midwife
DX: N63.25 Unspecified lump in the left breast, overlapping quadrants (principal)
CPT/HCPCS: 76642; 77062; 77066

== ENCOUNTER 2024-04-23 14:56 | Outpatient (REF) | payer OTHER, SELFPAY ==
[2024-04-24 05:07] LABS: CT PCR NOT DETECTED (Not Detect.); NG PCR NOT DETECTED (Not Detect.)
[2024-04-24 11:34] LABS: Bacterial Vaginosis PCR POSITIVE (Negative); Candida Group PCR NOT DETECTED (Not Detect); Candida glab krusei PCR NOT DETECTED (Not Detect); Trichomonas vaginalis PCR NOT DETECTED (Not Detect)
== END 2024-04-23 14:57 | disposition home or self-care (01) ==
LOC: HO.LNP 14:56
PROVIDERS: Visit Provider Advanced Practice Midwife
DX: N89.8 Other specified noninflammatory disorders of vagina (principal); N64.4 Mastodynia; N63.20 Unspecified lump in the left breast, unspecified quadrant; R30.0 Dysuria; R35.0 Frequency of micturition
CPT/HCPCS: 0352U; 81003; 87491; 87591; 99212

== ENCOUNTER 2024-04-23 14:56 | Outpatient (AMB) | payer OTHER, SELFPAY ==
--- NOTE | 2024-04-23 15:04 | MHC.OFFVIS ---
Intake Visit Reasons: Mammogram/Ultra sound follow up Intake Note: pt c/o dysuria, discharge and odor Allergies acetaminophen [From Vicodin] Allergy (Severe, Verified 01/19/24 08:13) Hives, Tongue swelling hydrocodone [From Vicodin] Allergy (Severe, Verified 01/19/24 08:13) Hives, Tongue swelling azithromycin [AZITHROMYCIN] Allergy (Unknown, Verified 01/19/24 08:13) Unknown erythromycin base [ERYTHROMYCIN BASE] Allergy (Unknown, Verified 01/19/24 08:13) Liver Inflammation Sulfa (Sulfonamide Antibiotics) Allergy (Unknown, Verified 01/19/24 08:13) Hives sulfamethoxazole [From Bactrim] Allergy (Unknown, Verified 01/19/24 08:13) Liver Inflammation trimethoprim [From Bactrim] Allergy (Unknown, Verified 01/19/24 08:13) Liver Inflammation HPI Comments Details: Patient is here today for her follow up breast ultrasound and mammogram report. History of left breast pain and mass. She reports being very uncomfortable on the left breast with difficulty sleeping and wearing clothes. She additionally is concerned with: frequency of urination, vaginal discharge, odor and irritation. Current Mirena user. 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 Sexual orientation: Straight/Heterosexual Gender identity: Female Review of Systems Const All systems reviewed & are unremarkable except as noted in HPI and below Reports no additional complaints Skin/Breast Reports system reviewed and no additional complaints, except as documented and Reports as per HPI Physical Exam Const General: cooperative, healthy appearing and no acute distress Orientation/consciousness: patient oriented x3 Chest Breast/axilla inspection: normal inspection of the breasts and normal inspection of the axillae Breast/axilla palpation: abnormal palpation of the breast (Fullness to the right upper breast patient very tender and jumpy w/exam) GI Inspection: Yes normal to inspection Palpation (GI): Soft to palpation and Other GI palpation findings present (Nontender) Rectal Exam - Female: visual inspection normal General: Yes bladder normal to palpation External Female Exam: normal appearance of the urethra Speculum Exam - Vagina: normal appearance of the vagina, normal palpation and normal vaginal discharge (Thin, white) Speculum Exam - Cervix: normal appearance of the cervix, normal palpation and Other cervical findings present (IUD strings present at the os no tip palpable) Bimanual exam- vagina & uterus: normal bimanual exam, normal palpation, uterine size normal, bladder normal to palpation, normal palpation, uterine shape normal and non-tender Bimanual Exam- Adnexa, other: normal adnexae Skin General skin exam: no rashes or lesions noted Neuro General: patient oriented x3 Results AMB Urinalysis, Automated UA Leukoctes 0 Surinder/uL Last Edit by Roma Umaña COUNT INCLUDES THE [facility] on 04/23/24 15:12 UA Nitrite Negative Last Edit by Roma Umaña COUNT INCLUDES THE [facility] on 04/23/24 15:12 UA Urobilinogen 0 mg/dL Last Edit by Roma Umaña COUNT INCLUDES THE [facility] on 04/23/24 15:12 UA Protein 0 mg/dL Last Edit by Roma Umaña COUNT INCLUDES THE [facility] on 04/23/24 15:12 UA pH 6.0 Last Edit by Roma Umaña COUNT INCLUDES THE [facility] on 04/23/24 15:12 UA Blood 0 Christ/uL Last Edit by Roma Umaña COUNT INCLUDES THE [facility] on 04/23/24 15:12 UA Specific Cascade 1.015 Last Edit by Roma Umaña COUNT INCLUDES THE [facility] on 04/23/24 15:12 UA Ketone Negative Last Edit by Roma Umaña COUNT INCLUDES THE [facility] on 04/23/24 15:12 UA Bilirubin 0 mg/dL Last Edit by Roma Umaña COUNT INCLUDES THE [facility] on 04/23/24 15:12 UA Glucose 0 mg/dL Last Edit by Rmoa Umaña COUNT INCLUDES THE [facility] on 04/23/24 15:12 Results Reviewed Results Reviewed: [facility] [address] [place], [place] [address] Mammography Report Signed Patient: Owen Russo MR#: [id number] : 1980 Acct:[id number] Age/Sex: 43 / F ADM Date: 02/16/24 Loc: HO.MAMMO Attending Dr: Lindsey Castellanos CNM Ordering Physician: Lindsey Castellanos CNM Results: 2Benign Findings Date of Service: 02/16/24 Follow Up: 1 Year From Original Mammogram Procedure(s): MM tomosynthesis diagnostic BI Accession Number(s): [id number] cc: Lindsey Castellanos CNM~ EXAMINATION: MM DIAGNOSTIC DIGITAL BREAST TOMOSYNTHESIS, BILATERAL US BREAST LIMITED, LEFT MAMMOGRAPHY: CLINICAL INFORMATION: Palpable abnormality left breast periareolar 9:00 axis, previously present, but perceptibly increasing in size since prior exam 05/26/2022 as per patient. COMPARISON: Mammography: 05/16/2022, 03/27/2018, 01/22/2018, dating back to 06/16/2015. MRI: Bilateral breast 03/27/2018, 02/19/2018. ULTRASOUND: Left 05/26/2022, left 06/16/2015 TECHNIQUE: Digital breast tomosynthesis is performed in both the craniocaudal and mediolateral oblique views along with computer-aided detection (CAD). Synthesized 2D images are generated from the tomosynthesis. In addition to standard views, full-field 3-D left mediolateral view was obtained, as well as 3-D spot compression left MLO and cc views. FINDINGS: The breasts are extremely dense, which lowers the sensitivity of mammography (ACR BI-RADS breast composition Category d). There is redemonstration of a mass lesion in the periareolar 9:00 axis left breast, which has been marked by the technologist as the palpable abnormality. This mass is circumscribed, contains definite fat density as well as soft tissue density, and has increased mildly in size since 2021, currently measuring approximately 2.0 x 1.9 x 2.4 cm (previously measuring approximately 1.6 x 0.6 x 1.9 cm as per prior report). Given fat density and circumscribed margins, this is consistent with a hamartoma, which has been previously diagnosed on prior breast MRI in 2018 and other studies dating back to 2014. There are bilateral post benign biopsy clips. Otherwise, There are no suspicious masses, suspicious grouped calcifications, or areas of architectural distortion in either breast which can be distinguished from the extremely dense breast parenchyma. There is a stable asymmetric density in the axillary tail region of the left breast. The overall parenchymal pattern is stable from prior exams. There is no skin abnormality or abnormal axillary lymph nodes. ULTRASOUND: CLINICAL INFORMATION: As above. COMPARISON: Ultrasound: Left 05/26/2022, left 06/16/2015 TECHNIQUE: Targeted sonographic evaluation was performed using a high frequency linear transducer. Attention was given to the 9:00 axis in the left breast periareolar region, in the region of increasing palpable concern. Selected archived documentation. FINDINGS: LEFT BREAST: In the 9:00 axis left breast periareolar location, there is a circumscribed, wider than tall oval mass with mixed echogenicity, measuring 2.4 x 0.7 x 1.7 cm. This is consistent with a hamartoma and is benign. No internal color Doppler signal, and there is good through transmission. Recommend clinical management if warranted. MM/MM tomosynthesis diagnostic BI IMPRESSION: -There are no findings suspicious for malignancy in either breast. -There is extremely dense breast parenchyma. -Palpable focus of concern correlates with the known hamartoma in the 9:00 axis periareolar left breast, which has mildly increased in size when compared with 2021 as discussed above (current measurements approximately 2.4 x 0.7 x 1.7 cm, previously measuring approximately 1.6 x 0.6 x 1.9 cm). Recommend clinical management if warranted. -Otherwise, recommend the patient resume routine annual screening to include both breasts. OVERALL ASSESSMENT: Mammography: BI-RADS 2 - Benign Findings Ultrasound: BI-RADS 2 - Benign Findings RECOMMENDATION: 1. Patient should be managed based on the clinical impression. 2. Otherwise, routine annual screening mammography. Results were provided to the patient at time of visit by the technologist. This patient's information was entered into a reminder system with a target due date for their next mammogram. Dictated By: Miguel Perez MD Signed By: <Electronically signed by Miguel Perez MD in OV> 02/20/24 1247 DD/ 1205 TD/TT: Magnetic Grinder Operator: Assessment & Plan Assessment & Plan (1) Breast lump: Code(s): N63.0 - Unspecified lump in unspecified breast Category: Medical Qualifiers: Laterality: left Breast mass location: unspecified quadrant Qualified Code(s): N63.20 - Unspecified lump in the left breast, unspecified quadrant Plan Discussed: Ultrasound and mammogram findings- 2.4cm mass suggested Haratoma, previously noted and has enlarged since last exam. I recommend she see the breast surgeon Dr. Gardiner for further evaluation and discussion of treatment plan which may include biopsy or removal. Await results for BV and GC chlamydia testing. Urine dip was negative today. 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 All of her questions and concerns were addressed to the best of my ability and shared decision making. She is agreeable to the plan of care. This note is constructed using voice recognition software. While every effort has been made to ensure accuracy, dietary worker errors may have been included. Orders: Orders AMB Urinalysis Automated Today R30.0 - Dysuria CT NG by PCR Today N89.8 - Other specified noninflammatory disorders of vagina Bacterial Vaginosis Panel Today N89.8 - Other specified noninflammatory disorders of vagina Referrals Breast Surgery Referral N63.20 - Unspecified lump in the left breast, unspecified quadrant, N64.4 - Mastodynia Coding Level of Care Code Est Pt Level 4 (36683) Diagnoses Mass of left breast, unspecified quadrant N63.20 Laterality: left Breast mass location: unspecified quadrant
== END 2024-04-23 18:55 | disposition home or self-care (01) ==
LOC: HO.HWS 14:56
PROVIDERS: Visit Provider Advanced Practice Midwife
DX: R30.0 Dysuria (principal); N63.20 Unspecified lump in the left breast, unspecified quadrant
CPT/HCPCS: 99214

== ENCOUNTER 2024-04-23 15:29 | Outpatient (REF) | payer OTHER, SELFPAY | END 2024-04-23 15:30 | disposition home or self-care (01) | LOC: HO.LAB 15:29 | PROVIDERS: Visit Provider Advanced Practice Midwife | DX: Z13.89 Encounter for screening for other disorder (principal) ==

== ENCOUNTER 2024-09-20 08:51 | Outpatient (REF) | payer OTHER, SELFPAY ==
--- NOTE | ~2024-09-20 | XR_ITS ---
EXAMINATION: XR HIP 2 OR MORE VIEWS RIGHT HISTORY: M25.551 - Pain in right hip COMPARISON: There are no prior studies for comparison. FINDINGS: A single AP view of the pelvis and two views of the right hip are submitted. Osseous mineralization is normal. There is no fracture or dislocation. The joint space is maintained. IUD is noted in the midline of the pelvis. XR/XR hip RT min 2V IMPRESSION: Unremarkable examination of the right hip. Electronically signed by: Juanjose Liu MD 09/20/2024 09:35 AM ALANA SAMANIEGO
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
== END 2024-09-20 08:52 | disposition home or self-care (01) ==
LOC: HO.HOSX 08:51
PROVIDERS: Visit Provider Physician Assistant
DX: M25.551 Pain in right hip (principal); M53.3 Sacrococcygeal disorders, not elsewhere classified
CPT/HCPCS: 73502

== ENCOUNTER 2024-09-20 09:09 | Outpatient (AMB) | payer OTHER, SELFPAY ==
[2024-09-20 09:13] VITALS: BMI 26.6
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
[2024-09-20 09:17] VITALS: BMI 26.6
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
== END 2024-09-20 09:43 | disposition home or self-care (01) ==
PROVIDERS: Visit Provider Physician Assistant
DX: M53.3 Sacrococcygeal disorders, not elsewhere classified (principal); Z04.3 Encounter for examination and observation following other accident
CPT/HCPCS: 99203; G2211

== ENCOUNTER → 2024-09-20 09:11 | Outpatient (BNV) | payer OTHER, SELFPAY | PROVIDERS: Visit Provider Radiology Diagnostic Radiology | DX: M25.551 Pain in right hip (principal) | CPT/HCPCS: 73502 ==

== ENCOUNTER 2024-10-15 16:51 | Outpatient (REF) | payer OTHER, SELFPAY ==
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
== END 2024-10-15 16:52 | disposition home or self-care (01) ==
LOC: HO.HOSX 16:51
PROVIDERS: Visit Provider Physician Assistant
DX: Z13.89 Encounter for screening for other disorder (principal)

== ENCOUNTER 2024-10-16 13:54 | Outpatient (REF) | payer OTHER, SELFPAY ==
--- NOTE | ~2024-10-16 | XR_ITS ---
EXAMINATION: XR KNEE 3 VIEWS RIGHT HISTORY: M17.11 - Unilateral primary osteoarthritis, right knee COMPARISON: There are no prior studies available for comparison. FINDINGS: Standing AP views of the bilateral knees and additional lateral and sunrise patellar views of the right knee are submitted. Osseous mineralization is normal. There is no fracture or dislocation. The joint spaces are preserved. The soft tissues are unremarkable. XR/XR knee RT 3V IMPRESSION: Unremarkable examination of the right knee. Electronically signed by: Juanjose Liu MD 10/17/2024 07:43 AM EDT
== END 2024-10-16 13:55 | disposition home or self-care (01) ==
LOC: HO.HOSX 13:54
PROVIDERS: Visit Provider Physician Assistant
DX: M17.11 Unilateral primary osteoarthritis, right knee (principal)
CPT/HCPCS: 73562

== ENCOUNTER 2024-10-16 13:54 | Outpatient (AMB) | payer OTHER, SELFPAY ==
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
== END 2024-10-16 15:01 | disposition home or self-care (01) ==
LOC: HO.HOS 13:55
PROVIDERS: Visit Provider Physician Assistant
DX: M22.2X1 Patellofemoral disorders, right knee (principal); S80.01XA Contusion of right knee, initial encounter; Z04.3 Encounter for examination and observation following other accident
CPT/HCPCS: 99213; G2211

== ENCOUNTER → 2024-10-16 14:08 | Outpatient (BNV) | payer OTHER, SELFPAY | PROVIDERS: Visit Provider Radiology Diagnostic Radiology | DX: M17.11 Unilateral primary osteoarthritis, right knee (principal) | CPT/HCPCS: 73562 ==

== ENCOUNTER 2024-10-19 14:25 | Outpatient (REF) | payer OTHER, SELFPAY ==
--- NOTE | ~2024-10-19 | MR_ITS ---
EXAMINATION: MRI RIGHT KNEE WITHOUT CONTRAST HISTORY: M17.11 - Unilateral primary osteoarthritis, right knee COMPARISON: Correlation is made with plain films of the right knee dated 10/16/2024. TECHNIQUE: Coronal T1 and fat-suppressed proton density, sagittal proton density and fat-suppressed proton density, and axial fat suppressed T2 weighted MR images of the right knee were obtained. FINDINGS: Bone marrow: Bone marrow signal intensity is normal. Joint effusion: There is no joint effusion. Gotti's cyst: There is a small to moderate Gotti's cyst. Articular cartilage: Intact Muscles/soft tissues: The visualized muscles demonstrate normal signal intensity. Anterior cruciate ligament: Intact Posterior cruciate ligament: Intact Medial collateral ligament: Intact Lateral collateral ligament: Intact Medial meniscus: Intact Lateral meniscus: Intact Flexor mechanism: The popliteus, gastrocnemius, and hamstring tendons are intact. Quadriceps tendon: Intact. There is edema and posterior bulging of the quadriceps fat pad. Patellar tendon: Intact Patellar retinacula: Intact MR/MR knee RT wo con IMPRESSION: 1. Edema and posterior bulging of the quadriceps fat pad which can be seen in the setting of prepatellar fat pad impingement syndrome. Clinical correlation is recommended. 2. Small to moderate Gotti's cyst. Otherwise unremarkable MRI of the right knee. Electronically signed by: Juanjose Liu MD 10/21/2024 07:41 AM EDT
--- OUTSIDE RECORDS SUMMARY | 2024-10-19 14:29 | XMS_ITS | Clinical Summary ---
Author Organization [facility] Address [address] [place] [address] Phone Care Team Providers Care Oven Operator Automatic Name Role Phone Darian Figueroa MD Primary [...] 09/28/2009 Overview (06/28/2024): Follows with behavioral health Immunizations Name Administration Dates Next Due Tdap Tetanus diptheria acell ular pertussis (Boostrix; Adacel) 7yo and older 04/16/2024,10/08/2013 Surgical History Surgery Date Site/Laterality Comments TONSILLECTOMY ADENOIDECTOMY, BILATERAL MYRINGOTOMY AND TUBES 2005 PROCEDURE: [place] TONSILLECTOMY & ADENOIDECTOMY <AGE 12; COMMENT: only 1 OTHER SURGICAL HISTORY 1992 PROCEDURE: ARTHROSCOPY PROCEDURE NEC; COMMENT: Bunion surgery SALPINGOOPHORECTOMY 2000 PROCEDURE: [place] LAPAROSCOPY W/RMVL ADNEXAL STRUCTURES; COMMENT: right tubal [...] 12/02/2024 3:30 PM EDT Office Visit Adult [address] [phone] Blanche Menendez PA [address] [place] [address] Health Maintenance Due Date Last Done Comments [...] Anatomical Region Laterality Modality Breast Bilateral Mammography Result [facility] Provider IMG BI PROCEDURES Final R esult * Depression Screening (04/16/2024) [facility] Depression Screening Abstracted Result [facility] Provider HEALTH MAINTENANCE Final Result * Annual BMP Blood Test (06/25/2020) [facility] Annual BMP Blood Test Abstracted [facility] Provider HEALTH MAINTENANCE Final Result * HIV Screening (05/01/2012) [facility] HIV Screening Abstracted Result [facility] Provider HEALTH MAINTENANCE Final Result * Cervical Cancer Screening: HPV (02/15/2012) [facility] Cervical Cancer Screening: HPV No Interpretation , Abstracted Result [facility] Provider HEALTH MAINTENANCE Final Result * Hepatitis C Screening (02/15/2012) [facility] Hepatitis C Screening Abstracted [facility] Provider HEALTH MAINTENANCE Final Result from Last 3 Months or Most Recently Relevant to Health Maintenance Insurance [facility] [facility] [employer] GENER[employer] Care Teams Oven Operator Automatic Relationship Specialty Start Date End Date Darian Figueroa MD [address] [place] [address] PCP - General Internal Medicine 12/28/21
== END 2024-10-19 14:26 | disposition home or self-care (01) ==
LOC: HO.MRI 14:25
PROVIDERS: Visit Provider Physician Assistant
DX: M17.11 Unilateral primary osteoarthritis, right knee (principal)
CPT/HCPCS: 73721

== ENCOUNTER → 2024-10-19 14:33 | Outpatient (BNV) | payer OTHER, SELFPAY | PROVIDERS: Visit Provider Radiology Diagnostic Radiology | DX: M71.21 Synovial cyst of popliteal space [Baker], right knee (principal) | CPT/HCPCS: 73721 ==

== ENCOUNTER 2024-10-25 11:10 | Outpatient (AMB) | payer OTHER, SELFPAY ==
--- NOTE | 2024-10-25 11:10 | MHC.OFFVIS ---
Vital Signs 10/25/24 11:13 Height 5 ft Weight 136 lb BMI 26.6 Intake Visit Reasons: Tel- Right knee MRI review Intake Note: Owen is a 44 year old female who presents today for a telephone visit to review MRI of right knee. Patient reports that her pain is getting worse and is limping. Allergies acetaminophen [From Vicodin] Allergy (Severe, Verified 10/25/24 11:13) Hives, Tongue swelling hydrocodone [From Vicodin] Allergy (Severe, Verified 10/25/24 11:13) Hives, Tongue swelling azithromycin [AZITHROMYCIN] Allergy (Unknown, Verified 10/25/24 11:13) Unknown erythromycin base [ERYTHROMYCIN BASE] Allergy (Unknown, Verified 10/25/24 11:13) Liver Inflammation Sulfa (Sulfonamide Antibiotics) Allergy (Unknown, Verified 10/25/24 11:13) Hives sulfamethoxazole [From Bactrim] Allergy (Unknown, Verified 10/25/24 11:13) Liver Inflammation trimethoprim [From Bactrim] Allergy (Unknown, Verified 10/25/24 11:13) Liver Inflammation Medication List - Last Reconciled 10/25/24 by Alondra Wolf PA-C clonidine HCl 0.1 mg PO BID levonorgestrel (Mirena) Mirena insertion 01/14/2018 metronidazole 0.75%(37.5mg/5gram) 1 appful vaginal BEDTIME 5 days ondansetron 4 mg PO Q6H PRN 4 days HPI HPI Tel- Right knee MRI review: Details: 44-year-old female presents for right knee MRI review telehealth visit. She continues to have discomfort with stairs and daily activities. 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 Sexual orientation: Straight/Heterosexual Gender identity: Female Review of Systems Const All systems reviewed & are unremarkable except as noted in HPI and below Physical Exam Vital Signs: BMI result Body Mass Index 26.6 Resp Effort & Inspection: normal respiratory effort and able to speak in complete sentences Telehealth Telehealth Telehealth Platform: Telephone Location of provider rendering services: practice address Location of patient: other Patient Identification confirmed using: Name, : Yes Telehealth method: voice only Patient verbally consented to treatment: Yes Patient verbally consented to billing insurance company: Yes Patient informed of any privacy concerns related to visit: Yes Minutes spent on Phone/Video with Pt.: 12 Results Reviewed Results Reviewed: MR knee RT wo con IMPRESSION: 1. Edema and posterior bulging of the quadriceps fat pad which can be seen in the setting of prepatellar fat pad impingement syndrome. Clinical correlation is recommended. 2. Small to moderate Gotti's cyst. Otherwise unremarkable MRI of the right knee. Assessment & Plan Assessment & Plan (1) Right patellofemoral syndrome: Code(s): M22.2X1 - Patellofemoral disorders, right knee Category: Medical (2) Contusion of right knee: Code(s): S80.01XA - Contusion of right knee, initial encounter Category: Medical Plan MRI was reviewed with the patient today there is no abnormalities within the cartilage or ligamentous structures that would warrant surgery at this time. I did recommend a cortisone injection if she continues to have discomfort with daily activities. She would like to proceed with this and will book an appointment accordingly. Coding Level of Care Code Tele Est Pt Level 3 (40204) Complex EM visit Add On G2211 Diagnoses Right patellofemoral syndrome M22.2X1 Contusion of right knee S80.01XA
[2024-10-25 11:13] VITALS: BMI 26.6
== END 2024-10-25 14:29 | disposition home or self-care (01) ==
LOC: HO.HOS 11:10
PROVIDERS: Visit Provider Physician Assistant
DX: M22.2X1 Patellofemoral disorders, right knee (principal); S80.01XA Contusion of right knee, initial encounter
CPT/HCPCS: 98012

== ENCOUNTER 2024-11-01 13:18 | Outpatient (AMB) | payer OTHER, SELFPAY ==
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
[2024-11-01 13:23] VITALS: BMI 26.6
== END 2024-11-01 13:54 | disposition home or self-care (01) ==
LOC: HO.HOS 13:18
PROVIDERS: Visit Provider Physician Assistant
DX: S80.01XA Contusion of right knee, initial encounter (principal); M22.2X1 Patellofemoral disorders, right knee
CPT/HCPCS: 20610; 99213

== ENCOUNTER → 2024-11-01 13:18 | Outpatient (BNVA) | payer OTHER, SELFPAY | PROVIDERS: Visit Provider Physician Assistant | DX: M22.2X1 Patellofemoral disorders, right knee (principal); S80.01XA Contusion of right knee, initial encounter; X58.XXXA Exposure to other specified factors, initial encounter; Y93.9 Activity, unspecified; Y92.9 Unspecified place or not applicable; Y99.9 Unspecified external cause status | CPT/HCPCS: 20610; J1010; J2003 ==

== ENCOUNTER 2024-12-13 10:38 | Outpatient (AMB) | payer OTHER, SELFPAY ==
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
--- OUTSIDE RECORDS SUMMARY | 2024-12-13 11:05 | XMS_ITS | Clinical Summary ---
Author Organization [facility] Address [address] [place] [address] Phone Care Team Providers Care Merchandise Processor Name Role Phone Darian Figueroa MD Primary [...] Encounters Date Type Department Care Team Description 12/11/2024 Telephone Adult Medicine [address] [phone] Darian Figueroa MD Rash from Last 3 Months Immunizations Name Administration Dates Next Due Tdap Tetanus diptheria acell ular pertussis (Boostrix; Adacel) 7yo and older 04/16/2024,10/08/2013 Surgical History Surgery Date Site/Laterality Comments TONSILLECTOMY ADENOIDECTOMY, BILATERAL MYRINGOTOMY AND TUBES 2005 PROCEDURE: MD TONSILLECTOMY & ADENOIDECTOMY <AGE 12; COMMENT: only 1 OTHER SURGICAL HISTORY 1992 PROCEDURE: ARTHROSCOPY PROCEDURE NEC; COMMENT: Bunion surgery SALPINGOOPHORECTOMY 2000 PROCEDURE: MD LAPAROSCOPY W/RMVL ADNEXAL STRUCTURES; COMMENT: right tubal [...] Care Team (Late st Contact Info) Description 12/13/2024 2:30 PM EDT Office Visit Adult Medicine [address] [phone] Darian Figueroa MD [address] [place] [phone] 01/10/2025 11:00 AM EDT Office Visit Adult Medicine [address] [phone] Darian Figueroa MD [address] [place] [address] [phone] Health Maintenance Due Date Last Done Comments Hepatitis B Vaccines (1 of 3 - 19+ 3-dose series) 1997 Pneumococcal Vaccine: Pediatrics (0 to 5 Years) and At-Risk Patients (6 to 64 Years) (2 of 2 - PCV) 11/16/2013 11/16/2012 Cholesterol Screening (Lipid Panel) 07/10/2022 Colorectal Cancer Screening: Colonoscopy 07/10/2022 Social Influencers of Health Screening 07/10/2022 COVID-19 Vaccine ( - 2023-2 5 season) 2024 07/15/2021, 11/10/2020, 10/19/2020 Hypertension/CHF/CAD Annual BMP Blood Test 07/12/2024 06/25/2020 Cervical Cancer Screening: P ap Smear 03/09/2025 03/09/2022, 02/15/2012, 02/15/2012 Influenza Vaccine (Season Ended) 2025 Depression Screening 04/16/2025 04/16/2024 Breast Cancer Screening [...] on patient's age to complete this topic Hepatitis A Vaccines Aged Out No long er eligible based on patient's age to complete this topic IPV Vaccines Aged Out No longer eligi ble based on patient's age to complete this topic MMR Vaccines Aged Out No longer eligi ble based on patient's age to complete this topic Meningococcal ACWY Vaccine Aged Out N o longer eligible based on patient's age to complete this topic Meningococcal B Vaccine Aged Out No l onger eligible based on patient's age to complete [...] Final R esult * Depression Screening (04/16/2024) Depression Screening Abstracted us Historical Provider HEALTH MAINTENANCE Final Result * Annual BMP Blood Test (06/25/2020) Pathologist [facility] Annual BMP Blood Test Abstracted Historical Provider HEALTH MAINTENANCE Final Result * HIV Screening (05/01/2012) Pathologist [facility] HIV Screening Abstracted Historical Provider HEALTH MAINTENANCE Final Result * Cervical Cancer Screening: HPV (02/15/2012) Pathologist [facility] Cervical Cancer Screening: HPV No Interpretation , Abstracted Historical Provider HEALTH MAINTENANCE Final Result * Hepatitis C Screening (02/15/2012) Pathologist [facility] Hepatitis C Screening Abstracted [facility] Provider HEALTH MAINTENANCE Final Result from Last 3 Months or Most Recently Relevant to Health Maintenance Insurance [facility] [address] HE[facility] PLAN [facility] Care Teams Merchandise Processor Relationship Specialty Start Date End Date Darian Figueroa MD [address] [place] [address] PCP - General Internal Medicine 12/28/21
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
== END 2024-12-13 12:01 | disposition home or self-care (01) ==
LOC: HO.HOS 10:38
PROVIDERS: Visit Provider Physical Medicine & Rehabilitation
DX: M53.3 Sacrococcygeal disorders, not elsewhere classified (principal); G57.01 Lesion of sciatic nerve, right lower limb; M70.61 Trochanteric bursitis, right hip
CPT/HCPCS: 99203

== ENCOUNTER 2025-03-21 11:07 | Outpatient (AMB) | payer OTHER, SELFPAY ==
[2025-03-21 11:13] VITALS: BMI 26.6
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
--- OUTSIDE RECORDS SUMMARY | 2025-03-21 11:17 | XMS_ITS | Clinical Summary ---
Author Organization [facility] Address [address] [place] [address] Phone Care Team Providers Care Tool Lathe Operator Name Role Phone Darian Figueroa MD Primary Care Provider [phone] Allergies Active Allergy Reactions Criticality Noted Date Comments Erythromycin Swelling 09/10/2009 Hydrocodone-Acetaminophen Hives 12/10/2014 Sulfa (Sulfonamide Antibiotics) 09/14/2020 Sulfamethoxazole-Trimethopri m Hives 09/10/2009 Other Reaction(s): Rash/Dermatitis Medications LEVONORGESTREL UTRN by Intrauterine route. Active hydrOXYzine pamoate (VISTARIL) 50 mg capsule Take 1 Capsule by mouth 4 times daily as needed for Anxiety. 09/26/19 24 Active sertraline (ZOLOFT) 50 mg tablet Take 1 tablet (50 mg total) by mouth 1 (one) time each day. Active fluticasone propionate (FLONASE) 50 mcg/actuation nasal [...] time. 30 each 1 07/12/20 24 Active cyclobenzaprine (FLEXERIL) 10 mg tablet Take 1 tablet (10 mg total) by mouth at bedtime as needed for muscle spasms. 30 tablet 1 07/19/20 24 Active ibuprofen (ADVIL,MOTRIN) 600 mg tablet Take 1 tablet (600 mg total) by mouth 3 (three) times a day if needed for mild pain (pain). 60 tablet 07/19/20 24 Active albuterol HFA (PROAIR HFA ; PROVENTIL HFA ; VENTOLIN HFA) 90 mcg/actuation inhalerIndications :Mild persistent asthma without complication Inhale 2 puffs by mouth every 4 (four) hours if needed for wheezing or shortness of breath. 6.7 g 3 12/14/19 25 Active amLODIPine (NORVASC) 5 mg tablet Take 1 tablet (5 mg total) by mouth 1 (one) time each day. 90 each 1 12/14/19 25 Active fluticasone furoate-vilanteroL (BREO ELLIPTA) 100-25 mcg/dose inhaler Inhale 1 puff by mouth 1 (one) time each day. 1 each 5 12/14/19 25 026 Active fexofenadine (JORGE) 180 mg tablet Take 1 tablet (180 mg total) by mouth 1 (one) time each day if needed (alleriges). 90 tablet 1 12/14/19 25 Active omeprazole (PriLOSEC) [address] capsule Take 1 capsule (20 mg total) by mouth 1 (one) time each day. Do not crush or chew. 90 capsule 1 12/14/19 25 Active ciclopirox (LOPROX) 0.77 % cream Apply thin layer to affected area BID for 2 weeks then stop. 60 g 2 12/14/19 25 Active Active Problems Problem Noted Date Diagnosed Date Gastroesophageal reflux disease without esophagi tis 12/13/2024 Abnormal echocardiogram 09/14/2020 Abnormal EKG 09/14/2020 Achilles [...] Encounters Date Type Department Care Team Description 01/10/2025 Telephone Plastic & Reconstructive Surgery - [place] [address] [facility] [address] [place] [address] Sincere Bhatt, DO UNABLE TO REACH from Last 3 Months Immunizations Name Administration Dates Next Due Tdap Tetanus diptheria acell ular pertussis (Boostrix; Adacel) 7yo and older 04/16/2024,10/08/2013 Surgical History Surgery Date Site/Laterality Comments TONSILLECTOMY ADENOIDECTOMY, BILATERAL MYRINGOTOMY AND TUBES 2005 PROCEDURE: [place] TONSILLECTOMY & ADENOIDECTOMY <AGE 12; COMMENT: only 1 OTHER SURGICAL HISTORY 1992 PROCEDURE: ARTHROSCOPY PROCEDURE NEC; COMMENT: Bunion surgery SALPINGOOPHORECTOMY 2000 PROCEDURE: [place] LAPAROSCOPY W/RMVL ADNEXAL STRUCTURES; COMMENT: right tubal [...] Sign Reading Time Taken Comments Blood Pressure 148/90 12/13/2024 2:47 PM EDT Pulse 78 12/13/2024 2:32 PM EDT Temperature 36.4 C (97.6 F) 12/13/2024 2:32 PM EDT Respiratory Rate 20 12/13/2024 2:32 PM EDT Oxygen Saturation - - Inhaled Oxygen Concentration - - Weight 64.9 kg (143 lb) 12/13/2024 2:32 PM EDT Height 152.4 cm (5') 12/13/2024 2:32 PM EDT Body Mass Index 27.93 12/13/2024 2:32 PM EDT Plan of Treatment Upcoming Encounters Date Type Department Care Team (Late st Contact Info) Description 04/18/2025 9:00 AM EDT Office Visit Adult Medicine [facility] [address] [place] [phone] Darian Figueroa MD [address] [place] [address] Health Maintenance Due Date Last Done Comments Hepatitis B Vaccines (1 of 3 - 19+ 3-dose series) 1997 Pneumococcal Vaccine: Pediatrics (0 to 5 Years) and At-Risk Patients (6 to 49 Years) (2 of 2 - PCV) 11/16/2013 11/16/2012 Cholesterol Screening (Lipid Panel) 07/10/2022 Colorectal Cancer Screening: Colonoscopy 07/10/2022 Social Influencers of Health Screening 07/10/2022 COVID-19 Vaccine (4 - 2023-2 5 season) 2024 07/15/2021, 11/10/2020, 10/19/2020 Hypertension/CHF/CAD Annual BMP Blood Test 07/12/2024 06/25/2020 Depression Screening 08/07/2024 04/16/2024 Cervical Cancer Screening: P ap Smear 03/09/2025 03/09/2022, 02/15/2012, 02/15/2012 Influenza Vaccine (#1) 2025 Breast Cancer Screening 08/06/2026 08/06/20 24, 02/16/2024, [...] Procedure Name Priority Date/Time Associated Diagnosis Comments MAMMO DIGITAL DIAGNOSTIC BILAT Routine 08/06/2024 3:54 [...] R esult * Depression Screening (04/16/2024) Pathologist [facility] Depression Screening Abstracted us Historical Provider HEALTH MAINTENANCE Final Result * Annual BMP Blood Test (06/25/2020) Pathologist [facility] Annual BMP Blood Test Abstracted Historical Provider HEALTH MAINTENANCE Final Result * HIV Screening (05/01/2012) Pathologist [facility] HIV Screening Abstracted [facility] Provider HEALTH MAINTENANCE Final Result * Cervical Cancer Screening: HPV (02/15/2012) Pathologist [facility] Cervical Cancer Screening: HPV No Interpretation , Abstracted [facility] Provider HEALTH MAINTENANCE Final Result * Hepatitis C Screening (02/15/2012) Pathologist [facility] Hepatitis C Screening Abstracted [facility] Provider HEALTH MAINTENANCE Final Result from Last 3 Months or Most Recently Relevant to Health Maintenance Insurance [facility] [employer] Care Teams Tool Lathe Operator Relationship Specialty Start Date End Date Darian Figueroa MD [address], [place] PCP - General Internal Medicine 12/28/21
--- OUTSIDE RECORDS SUMMARY | 2025-03-21 11:17 | XMS_ITS ---
Author Name [facility] Organization Unknown Care Team Organization Name Specialty Phone Email Start Date End Da te [facility] Darian Figueroa Primary Care 10/12/202203/07 [facility] Dara Rider Primary Care 06/14/2022 03/25/2024
--- OUTSIDE RECORDS SUMMARY | 2025-03-21 11:17 | XMS_ITS | Clinical Summary ---
Author Organization [facility] Address [address] [place] [phone] Phone Care Team Providers Care Tour Coordinator Name Role Phone Darian Figueroa MD Primary Care Provider Social History Tobacco Use Types Packs/Day Years Used Date Smoking Tobacco: Never Assessed Education Answer Date Recorded Are you interested in more education? Not on husam e 12/24/2024 Are you concerned about learning? Not on file 12/24/2024 No 12/24/2024 No 12/24/2024 Digital Access Answer Date Recorded No 12/24/2024 No 12/24/2024 Reliable internet access at home? Not on file 12/24/2024 Device with a working camera? Not on file Comments Unknown Sex and Gender Information Value Date Recorded Sex Assigned at Not on file Legal Sex Female 1:14 PM EDT Gender Identity Not on file Sexual Orientation Not on file Plan of Treatment Upcoming Encounters Date Type Department Care Team (Late st Contact Info) Description 06/16/2025 10:30 AM EST Office Visit [facility] [address] [place] [id number] Chaim Tran MD [address] [place] [address], [address] [address] anne Health Maintenance Due Date Last Done Comments Adult Td,Tdap Booster 1978 LIPID PANEL 1978 DEPRESSION SCREENING 1990 SMOKING Hx and SMOKELESS TOB ACCO SCREENING 1991 HEPATITIS C SCREENING 1996 HIV ONE-TIME SCREENING (18-6 5 YEARS) 1996 PAP SMEAR 1999 MAMMOGRAM 2018 COLOGUARD 2023 COLONOSCOPY 2023 COLORECTAL CANCER SCREENING 2023 FIT TEST 2023 FOBT 2023 SIGMOIDOSCOPY 2023 VIRTUAL COLONOSCOPY 2023 COVID-19 VACCINE (2023-2 5 season) 2024 HEPATITIS A VACCINES Aged Out No long er eligible based on patient's age to complete this topic HIB VACCINES Aged Out No longer eligi ble based on patient's age to complete this topic MENINGOCOCCAL VACCINES (ACWY) Aged Out No longer eligible based on patient's age to complete this topic MENINGOCOCCAL VACCINES (B) Aged Out N o longer eligible based on patient's age to complete this topic PNEUMOCOCCAL VACCINES (0-49 years) Aged Out No longer eligible based on patient's age to complete this topic Medical Devices Not on file Insurance Accountable [facility] Care Teams Tour Coordinator Relationship Specialty Start Date End Date Darian Figueroa MD [address] [place] [id number] PCP - General Internal Medicine 12/20/24 Additional Source Comments The information contained in this document represents components of the legal health record. It is not the complete legal health record.[facility]
== END 2025-03-21 11:46 | disposition home or self-care (01) ==
LOC: HO.HOS 11:08
PROVIDERS: Visit Provider Physical Medicine & Rehabilitation
DX: M54.50 Low back pain, unspecified (principal); G89.29 Other chronic pain; M53.3 Sacrococcygeal disorders, not elsewhere classified
CPT/HCPCS: 99214

== ENCOUNTER 2025-03-31 13:50 | Emergency (ER) | payer SELFPAY ==
--- NOTE | ~2025-03-31 | XR_ITS ---
EXAMINATION: XR CHEST CLINICAL INFORMATION: chest pain COMPARISON: None available. TECHNIQUE: 2 views of the chest were obtained. FINDINGS: No significant abnormality is noted involving the heart, lungs, mediastinum, bony thorax or soft tissues. The aorta is tortuous. XR/XR chest 2V IMPRESSION: No acute disease Electronically signed by: Tanner Patterson MD 03/31/2025 03:07 PM EDT RP
--- NOTE | 2025-03-31 13:54 | ECG_ITS ---
Test Reason : CP/ANXIETY Blood Pressure : */* mmHG Vent. Rate : 71 BPM Atrial Rate : 71 BPM P-R Int : 152 ms QRS Dur : 72 ms QT Int : 398 ms P-R-T Axes : 67 30 38 degrees QTcB Int : 432 ms Normal sinus rhythm Minimal voltage criteria for LVH, may be normal variant ( Sokolow-Rosado ) Nonspecific T wave abnormality Abnormal ECG When compared with ECG of 11-Dec-2005 18:39, No significant change was found Referred By: Kayla Thorpe Electronically Signed By: NAY PEARSON
[2025-03-31 14:21] VITALS: BP 182/72; PULSE 79; RESP 19; TEMP 36.6; O2SAT 98; BMI 30.9
--- NOTE | 2025-03-31 14:21 | ED_ITS ---
HPI - General Adult General Chief complaint: Chest Pain Stated complaint: chest pain, elev bp Time Seen by Provider: 03/31/25 15:06 Source: patient Mode of arrival: ambulatory Limitations: no limitations History of Present Illness ED Provider: Awilda Robins aPRN HPI narrative: 44 yo female with PMH HTN, anxiety, depression, asthma presents to the ER with complaints of left sided chest pain which began at 1115. Described as sharp and stabbing and constant, not worsened with exertion. Associated with dizziness. No associated shortness of breath, vomiting or diaphoresis. No recent travel. No recent surgeries, hospitalizations. No hormone use therapy. No history of DVT or PE. No recent cough or upper respiratory symptoms. No fevers, chills, leg swelling or leg pain. Patient reports she has had a lot of stress today as she found out she has to put down her dog. Her car also broke down before her pain started. She feels this might be related to her anxiety. She does smoke cigarettes. She denies alcohol or substance use. Related Data Home Medications ?Medication ?Instructions ?Recorded ?Confirmed levonorgestrel (Mirena) intrauterine 01/19/24 Previous Rx's ?Medication ?Instructions ?Recorded clonidine HCl 0.1 mg tablet 0.1 mg PO BID #10 tabs ondansetron 4 mg disintegrating 4 mg PO Q6H PRN nausea and 09/29/23 tablet vomiting 4 days #20 tabs metronidazole 0.75 % (37.5 mg/5 1 appful vaginal BEDTI ME 5 days 04/24/24 gram) vaginal gel #70 grams hydroxyzine pamoate 25 mg capsule 25 mg PO TID PRN anx iety #12 caps 03/31/25 Allergies Allergy/AdvReac Type Severity Reaction Status Date / Time acetaminophen (From Vicodin) Allergy Severe Hives, Verified 03/31/25 14:23 Tongue swelling hydrocodone (From Vicodin) Allergy Severe Hives, Verified 03/31/25 14:23 Tongue swelling azithromycin (AZITHROMYCIN) Allergy Unknown Unknown Verified 03/31/25 14:23 erythromycin base Allergy Unknown Liver Verified 03/31/25 14:23 (ERYTHROMYCIN BASE) Inflammation Sulfa (Sulfonamide Allergy Unknown Hives Verified 03/31/25 14:23 Antibiotics) sulfamethoxazole (From Allergy Unknown Liver Verified 03/31/25 14:23 Bactrim) Inflammation trimethoprim (From Bactrim) Allergy Unknown Liver Verified 03/31/25 14:23 Inflammation Review of Systems 2 Review of Systems: Yes all other systems are reviewed and are negative Constitutional: Constitutional: Reports no additional constitutional complaints, Denies body ache(s), Denies chills, Denies fever(s), Denies headache(s) and Denies weakness Eyes: Eyes: Reports no additional eye complaints and Denies change in vision ENT: Reports system reviewed and no additional complaints, except as documented, Denies dizziness, Denies headache(s), Denies nasal congestion, Denies nasal discharge and Denies neck pain Cardiovascular: Cardiovascular: Reports no additional cardiovascular complaints, Reports chest pain, Denies leg edema and Denies dyspnea Respiratory: Respiratory: Reports no additional respiratory complaints, Denies cough and Denies dyspnea Gastrointestinal: Gastrointestinal: Reports no additional gastrointestinal complaints, Denies abdominal pain, Denies diarrhea, Denies nausea and Denies vomiting Genitourinary: Genitourinary: Reports no additional female genitourinary complaints and Denies urinary incontinence Musculoskeletal: Musculoskeletal: Reports no additional musculoskeletal complaints, Denies back pain, Denies arthralgias, Denies joint swelling, Denies neck pain, Denies numbness and Denies tingling Integumentary/Breasts: Skin/Breast: Reports system reviewed and no additional complaints, except as docu and Denies rash Neurologic: Reports system reviewed and no additional complaints, except as documented, Denies Abnormal speech present, Denies dizziness, Denies headache(s), Denies numbness, Denies tingling and Denies weakness [facility] Past Medical History Attestation statement: The following information was validated with the patient. Source: old records reviewed and nursing notes reviewed Medical History Abnormal Pap smear of cervix Opioid use disorder Family History Family History Father Stroke Heart attack Diabetes Maternal Aunt Breast cancer Social History Social History Household Members: Spouse and Children Housing: House Alcohol intake: never Patient Tobacco Use Status: Current everyday Tobacco user Tobacco use type: Cigarette Cigarettes Per Day: 4 Years Smoked: 20 Advance Directives: No Advance Directives Information Provided: No Do you have a plan to hurt others: No Plan Patient : No Current occupational status: employed 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 Sexual orientation: Straight/Heterosexual Gender identity: Female Physical Exam ED Vital Signs: Vital Signs - 24 hr 03/31/25 14:21 03/31/25 16:08 Temperature 97.8 F Pulse Rate 79 56 Respiratory Rate 19 Blood Pressure 182/72 H 151/103 H Pulse Oximetry 98 Oxygen Delivery Method Room Air BMI result Body Mass Index 30.9 Const General: cooperative, healthy appearing, comfortable and no acute distress Orientation/consciousness: patient oriented x3 Limitations: no limitations HENMT Head: Yes normal to inspection Ears: hearing grossly normal bilaterally General nose exam: Normal external nose present Face and sinus: Yes normal facial exam Mouth: Normal oral and palatal mucosa present Throat: Yes posterior oropharynx normal Eyes General: appearance normal, both eyes and all related structures Pupils: Equal, round and reactive pupils present Neck Neck: Yes normal visual inspection Chest Chest palpation & inspection: normal inspection of the chest Resp Effort & Inspection: normal respiratory effort Auscultation: clear to auscultation bilaterally Cardio Rate: regular rate Rhythm: regular rhythm Peripheral pulses: Peripheral pulses 2+ throughout GI Inspection: Yes normal to inspection Palpation (GI): Soft to palpation and nontender Auscultation: normal bowel sounds Back/Spine/Pelvis Thoracic/Lumbar Spine: thoracic and lumbar spine normal to inspection Skin General skin exam: no rashes or lesions noted Neuro General: patient oriented x3, no focal motor deficits and normal sensation to monofilament Cranial nerves: Yes Equal, round and reactive pupils present Cognition (Neuro): normal cognition Speech: No Abnormal speech present Gait exam (Neuro): Normal gait present Motor exam (neuro): 5/5 motor strength present throughout Extrem General: Yes normal to inspection, Yes no calf tenderness and No pedal edema Course Course Course Narrative: Rapid medical examination performed in triage by Kayla Thorpe PA-C. Patient is a 44 year old assigned female at presenting to the emergency department with chest pain. Detailed physical exam and review of systems are deferred to the primary education professor. EKG, labs, imaging ordered. Patient placed back in the waiting room pending room availability and results. Reevaluation(s) Reevaluation #1: Labs are unremarkable including 2 troponins with no delta change, nonischemic EKG, normal CXR. Blood pressure improved but is still elevated. Patient can follow-up outpatient. Feels the dose of ativan improved her symptoms. Met with CARE team and given outpatient resources. Reviewed worrisome signs/symptoms with patient and when to seek additional care. Comfortable with discharge home. Medications Administered Discontinued Medications Generic Name Dose Route Start Last Admin Trade Name Carolann PRN Reason Stop Dose Admin Lorazepam 1 mg 03/31/25 15:41 03/31/25 15:48 Lorazepam 1 Mg Tablet PO 03/31/25 15:42 1 mg ONCE ONE Administration Medical Decision Making Medical Decision Making [facility] Narrative: 44 yo female with PMH HTN, anxiety, depression, asthma presents to the ER with complaints of left sided chest pain which began at 1115. Described as sharp and stabbing and constant, not worsened with exertion. Associated with dizziness. No associated shortness of breath, vomiting or diaphoresis. No recent travel. No recent surgeries, hospitalizations. No hormone use therapy. No history of DVT or PE. No recent cough or upper respiratory symptoms. No fevers, chills, leg swelling or leg pain. Patient reports she has had a lot of stress today as she found out she has to put down her dog. Her car also broke down before her pain started. She feels this might be related to her anxiety. She does smoke cigarettes. She denies alcohol or substance use. VSS LS CTA No leg swelling or leg pain Will obtain labs, EKG, CXR Offered anxiety meds which patient accepted Differential Diagnosis Differential Diagnoses: The differential diagnosis associated with the presentation includes ACS anxiety less likely aortic dissection d/t gradual onset less likely PE with no hypoxia or tachypnea or tachycardic or clnical findings concerning for DVT, no risk factors for same Admission/Observation Consideration of admission/observation: Escalation of care including admission/observation considered Less likely ACS with two flat troponins, non ischemic EKG, no need for admission for further evaluation Consult Healthcare Provider Management of the patient was discussed with: Behavioral Health Provider Seen by CARE team. Will be given outpatient resources. They would have liked the patient to remain in the ER for several hours to rest but she declined and wanted to be discharged home. There is no SI/HI and I feel safe for discharge. Lab Data [facility] Lab Attestation statement: I reviewed the patient's lab results. 03/31/25 15:14 03/31/25 15:14 Labs: Lab Results 03/31/25 03/31/25 Range/Units 15:14 18:13 WBC 6.7 (4.8-10.8) X10*3/uL RBC 4.75 (4.20-5.50) X10*6/uL Hgb 13.3 (12.0-16.0) g/dl Hct 40.5 (37.0-47.0) % MCV 85.3 (80.0-98.0) fL MCH 28.0 (27.0-33.0) pg MCHC 32.8 (31.0-35.0) g/dl RDW 13.9 (11.0-16.0) % Plt Count 169 (160-400) X10*3/uL MPV 11.2 (9.4-12.3) fL Immature Gran % (Auto) 0.4 (0.0-0.4) % Neut % (Auto) 49.9 (45-73) % Lymph % (Auto) 39.3 (20-40) % Morehouse % (Auto) 8.1 (2-11) % Eos % (Auto) 1.6 (0-4) % Baso % (Auto) 0.7 (0-2) % Lymph # (Auto) 2.6 (1.2-4.9) X10*3/uL [place]house # (Auto) 0.5 (0.1-1.2) X10*3/uL Eos # (Auto) 0.1 (0.0-0.4) X10*3/uL Baso # (Auto) 0.1 (0.0-0.2) X10*3/uL Abs Immat Gran (auto) 0.03 (0.00-0.03) X10*3/uL Absolute Neuts (auto) 3.3 (2.0-8.3) x10*3/uL Absolute Nucleated RBC 0.000 (0.0-0.012) X10*3/uL Nucleated RBC % (auto) 0.0 (0.0-0.2) /100WBC PT 11.3 (10.9-12.4) SEC INR 1.0 (0.9-1.1) Sodium 143 (135-145) mmol/L Potassium 3.4 (3.3-5.1) mmol/L Chloride 108 (96-108) mmol/L Carbon Dioxide 28 (22-29) mmol/L Anion Gap 10 L (12-20) BUN 13 (9-16) mg/dL Creatinine 1.00 (0.5-1.4) mg/dL Estim Creat Clear Calc 62.1 Estimated GFR 60 Random Glucose 99 (60-115) mg/dL Calcium 8.8 (8.4-10.2) mg/dL Magnesium 2.0 (1.6-2.6) mg/dL Total Bilirubin 0.4 (0.0-1.0) mg/dL AST 20 (5-31) U/L ALT 22 (0-31) U/L Alkaline Phosphatase 70 (39-117) U/L Troponin I High Sens 14.9 18.9 H (<3.5-17.0) ng/L Total Protein 6.7 (6.5-8.0) g/dL Albumin 4.2 (3.5-5.0) g/dL Independent Interpretation I performed an independent interpretation of an: EKG and Plain X-Ray Interpretation: I independently viewed the x-ray and agree with the radiology report I indepedentely reviewed the EKG which shows normal sinus rhythm with a rate of 71, normal IA, normal QRS, normal QT Radiology Impression Discussion of test interpretation with radiology: I have reviewed the radiologist's reading. Radiologist Impression: [address] [address] XRay Report Signed Patient: Owen Russo MR#: [id number] : 1980 Acct:[id number] Age/Sex: 44 / F ADM Date: 03/31/25 Loc: .ED Attending Dr: Ordering Physician: Kayla Thorpe Date of Service: 03/31/25 Procedure(s): XR chest 2V Accession Number(s): [id number] cc: Kayla Thorpe; Group,[facility] EXAMINATION: XR CHEST CLINICAL INFORMATION: chest pain COMPARISON: None available. TECHNIQUE: 2 views of the chest were obtained. FINDINGS: No significant abnormality is noted involving the heart, lungs, mediastinum, bony thorax or soft tissues. The aorta is tortuous. XR/XR chest 2V IMPRESSION: No acute disease Electronically signed by: Tanner Patterson MD 03/31/2025 03:07 PM EDT RP Discharge Plan Discharge Clinical Impression: Chest pain Patient Disposition: Home, Self-Care Instructions: Chest Pain (ED) Additional Instructions: Your blood work, x-ray and EKG are reassuring Please follow-up with your outpatient provider Your blood pressure was elevated. You should recheck this at home and follow-up with your primary care doctor if it continues to be elevated See resources provided by our care team It is important after your visit that you follow up with either your behavioral health provider or a primary care doctor within 7 days.? If you have trouble finding a therapist you can reach out to [address] [phone] The National Suicide and Crisis Lifeline can be reached 7 days a week 24 hours a day.? Call 988 to speak with someone.? Return for any worsening symptoms or concerns such as thoughts of self harm or harm to others. Please call 911 if you feel your mental health is worsening.? Prescriptions: New hydroxyzine pamoate 25 mg capsule 25 mg PO TID PRN (Reason: anxiety) Qty: 12 0RF No Action metronidazole 0.75 % (37.5mg/5 gram) gel 1 appful vaginal BEDTIME 5 Days Qty: 70 0RF Mirena 21 mcg/24 hours (8 yrs) 52 mg intrauterine device intrauterine Rx Instructions: Mirena insertion 01/14/2018 ondansetron 4 mg tablet,disintegrating 4 mg PO Q6H PRN (Reason: nausea and vomiting) 4 Days Qty: 20 0RF clonidine HCl 0.1 mg tablet 0.1 mg PO BID Qty: 10 0RF Referrals: [facility] [Primary Care Provider, Primary Care] Print Language: Greenlandic
[2025-03-31 15:20] LABS: MANUAL DIFF FLAG NO
[2025-03-31 15:22] LABS: Hematocrit 40.5 % (37.0-47.0); Hemoglobin 13.3 g/dl (12.0-16.0); Imm Gran Abs Auto 0.03 X10*3/uL (0.00-0.03); Imm Gran Pct Auto 0.4 % (0.0-0.4); Lymphocytes Absolute Auto 2.6 X10*3/uL (1.2-4.9); Mean Corpuscular HGB Conc 32.8 g/dl (31.0-35.0); Mean Corpuscular Hemoglobin 28.0 pg (27.0-33.0); Mean Corpuscular Volume 85.3 fL (80.0-98.0); NRBC Abs Auto 0.000 X10*3/uL (0.0-0.012); NRBC Pct Auto 0.0 /100WBC (0.0-0.2); Platelet Count 169 X10*3/uL (160-400); Red Blood Count 4.75 X10*6/uL (4.20-5.50); White Blood Count 6.7 X10*3/uL (4.8-10.8)
[2025-03-31 15:35] LABS: Alanine Aminotransferase 22 U/L (0-31); Albumin Level 4.2 g/dL (3.5-5.0); Alkaline Phosphatase 70 U/L (39-117); Anion Gap 10 (12-20); Aspartate Amino Transferase 20 U/L (5-31); Blood Urea Nitrogen 13 mg/dL (9-16); Calcium 8.8 mg/dL (8.4-10.2); Carbon Dioxide 28 mmol/L (22-29); Chloride 108 mmol/L (96-108); Creatinine Clr Calc Pharmacy 62.1; Estimated Glomerular Filt Rate 60; INTERNATIONAL NORM RATIO 1.0 (0.9-1.1); Magnesium 2.0 mg/dL (1.6-2.6); Potassium 3.4 mmol/L (3.3-5.1); Prothrombin Time 11.3 SEC (10.9-12.4); Sodium 143 mmol/L (135-145); Total Protein 6.7 g/dL (6.5-8.0)
[2025-03-31 15:42] LABS: Troponin-I High Sensitivity 14.9 ng/L (<3.5-17.0)
[2025-03-31 16:08] VITALS: BP 151/103; PULSE 56
--- NOTE | 2025-03-31 16:45 | PC.NURSE ---
Pt rests on stretcher. BP continues to be elevated and Pt is visibly emotionally upset. Pt expresses feeling overwhelmed with numerous life stressors: divorce, grief/loss, work stress. She states she feels she is at her breaking point. No SI/HI statements made. This RN discussed the available of Care Team to assist with resources and services. Pt agreeable to see Care Team while she is here. Discussed with AGILE TEST LEAD and verbal orders received for Care Team consult.
--- OUTSIDE RECORDS SUMMARY | 2025-03-31 17:34 | XMS_ITS | Clinical Summary ---
Author Organization [facility] Address [address] [place] [address] Phone Care Team Providers Care Destination Coordinator Name Role Phone Darian Figueroa MD Primary Care Provider [phone] Allergies Active Allergy Reactions Criticality Noted Date [...] 01/10/2025 Telephone Plastic & Reconstructive Surgery - [place] [address] [facility] [address] [place] [address] Sincere Bhatt DO from Last 3 Months Immunizations Name Administration Dates Next Due Tdap Tetanus diptheria acell ular pertussis (Boostrix; Adacel) 7yo and older 04/16/2024,10/08/2013 Surgical History Surgery Date Site/Laterality Comments TONSILLECTOMY ADENOIDECTOMY, BILATERAL MYRINGOTOMY AND TUBES 2005 PROCEDURE: OK TONSILLECTOMY & ADENOIDECTOMY <AGE 12; COMMENT: only 1 OTHER SURGICAL HISTORY 1992 PROCEDURE: ARTHROSCOPY PROCEDURE NEC; COMMENT: Bunion surgery SALPINGOOPHORECTOMY 2000 PROCEDURE: OK LAPAROSCOPY W/RMVL ADNEXAL STRUCTURES; COMMENT: right tubal [...] 9:00 AM EDT Office Visit Adult Medicine [facility] [address] [place] [phone] Darian Figueroa MD [address] [place] [address] Health Maintenance Due Date Last Done Comments [...] Result * Annual BMP Blood Test (06/25/2020) Annual BMP Blood Test Abstracted Historical Provider HEALTH MAINTENANCE Final Result * HIV Screening (05/01/2012) Pathologist [facility] HIV Screening Abstracted Result [employer] Provider HEALTH MAINTENANCE Final Result * Cervical Cancer Screening: HPV (02/15/2012) Pathologist [facility] Cervical Cancer Screening: HPV No Interpretation , Abstracted [facility] Provider HEALTH MAINTENANCE Final Result * Hepatitis C Screening (02/15/2012) Pathologist [facility] Hepatitis C Screening Abstracted [facility] Provider HEALTH MAINTENANCE Final Result from Last 3 Months or Most Recently Relevant to Health Maintenance Insurance [facility] [employer] Care Teams Destination Coordinator Relationship Specialty Start Date End Date Darian Figueroa MD [address] [place], [place] PCP - General Internal Medicine 12/28/21
--- OUTSIDE RECORDS SUMMARY | 2025-03-31 17:34 | XMS_ITS | Clinical Summary ---
Author Organization [facility] Address [address] [place] [phone] Phone Care Team Providers Care Boiler Mechanic Name Role Phone Darian Figueroa MD Primary [...] Description 06/16/2025 10:30 AM EST Office Visit [facility] [address] [place] [phone] Chaim Tran MD [address] [place] [address], [address] [address] anne Health Maintenance Due Date Last Done [...] topic Medical Devices Not on file Insurance [employer] [facility] ACO [facility] ACO [facility] ACO Care Teams Boiler Mechanic Relationship Specialty Start Date End Date Darian Figueroa MD [address] [place] [phone] PCP - General Internal Medicine 12/20/24 Additional Source Comments The information contained in this document represents components of the legal health record. It is not the complete legal health record.[facility]
[2025-03-31 18:38] LABS: Troponin-I High Sensitivity 18.9 ng/L (<3.5-17.0)
[2025-03-31 18:51] VITALS: BP 165/98; PULSE 66; RESP 17; TEMP 36.7; O2SAT 99
[2025-03-31 19:00] VITALS: BP 165/98; PULSE 68; RESP 18; TEMP -17.7; TEMP 0; O2SAT 94
== END 2025-03-31 19:15 | disposition home or self-care (01) ==
PROVIDERS: Nurse Practitioner Family; Physician Assistant Medical; Emergency Provider Emergency Medicine
DX: R07.89 Other chest pain (principal); I10 Essential (primary) hypertension; R42 Dizziness and giddiness; F17.210 Nicotine dependence, cigarettes, uncomplicated; F41.9 Anxiety disorder, unspecified; Z63.4 Disappearance and death of family member; Z79.899 Other long term (current) drug therapy
CPT/HCPCS: 36415; 71046; 80053; 83735; 84484; 85025; 85610; 93005; 99283; 99285; S9485

== ENCOUNTER → 2025-03-31 13:54 | Outpatient (BNV) | payer SELFPAY | PROVIDERS: Emergency Provider Emergency Medicine; Visit Provider Internal Medicine | DX: R94.31 Abnormal electrocardiogram [ECG] [EKG] (principal); R07.9 Chest pain, unspecified; F41.9 Anxiety disorder, unspecified | CPT/HCPCS: 93010 ==

== ENCOUNTER → 2025-03-31 14:22 | Outpatient (BNV) | payer SELFPAY | PROVIDERS: Emergency Provider Emergency Medicine; Visit Provider Radiology Diagnostic Radiology | DX: R07.89 Other chest pain (principal) | CPT/HCPCS: 71046 ==

== ENCOUNTER → 2025-04-27 14:16 | Outpatient (BNV) | payer OTHER, SELFPAY | PROVIDERS: Visit Provider Radiology Diagnostic Radiology | DX: M54.50 Low back pain, unspecified (principal); D73.89 Other diseases of spleen | CPT/HCPCS: 72148 ==

== ENCOUNTER 2025-04-27 14:18 | Outpatient (REF) | payer OTHER, SELFPAY ==
--- NOTE | ~2025-04-27 | MR_ITS ---
EXAMINATION: MR LUMBAR SPINE WITHOUT IV CONTRAST History: M54.9 - Dorsalgia, unspecified Technique: Sagittal T1, T2 and STIR, and axial T1 and T2 weighted images of the lumbar spine were obtained per departmental protocol. Comparison: There are no prior studies available for comparison. Findings: The vertebral bodies maintain normal height, alignment, and marrow signal intensity. The intervertebral discs maintain normal height and hydration. At T12-L1,there is no evidence of disc herniation, central spinal stenosis, or neural foraminal narrowing. At L1-2, there is no evidence of disc herniation, central spinal stenosis, or neural foraminal narrowing. At L2-3, there is no evidence of disc herniation, central spinal stenosis, or neural foraminal narrowing. At L3-4, there is no evidence of disc herniation, central spinal stenosis, or neural foraminal narrowing. At L4-5, there is annular tear. There is no evidence of disc herniation, central spinal stenosis, or neural foraminal narrowing. At L5-S1, there is no evidence of disc herniation, central spinal stenosis, or neural foraminal narrowing. The conus terminates at the T12-L1 level and demonstrates normal signal intensity. Evaluation of the paraspinal soft tissues demonstrates a partially visualized 3.4 cm cystic lesion of the spleen. There appears to be an IUD in the endometrial cavity. There is thickening of the junctional zone of the uterus which can be seen in the setting of adenomyosis. There is a 4.3 x 2.8 cm septated cystic lesion of the left adnexa. MR/MR lumbar spine wo con Impression: 1. Annular tear at the L4-5 level. Otherwise unremarkable MRI of the lumbar spine. 2. Partially visualized 3.4 cm cystic lesion of the spleen. Correlation with ultrasound is recommended. 3. Possible adenomyosis of the uterus. 4.3 x 2.8 cm cyst at dated cystic lesion of the left adnexa. Ultrasound correlation is recommended. Electronically signed by: Juanjose Liu MD 04/28/2025 09:03 AM EDT
--- OUTSIDE RECORDS SUMMARY | 2025-04-27 14:24 | XMS_ITS | Clinical Summary ---
Author Organization [facility] Address [address] [place] [address] Phone Care Team Providers Care Developer Prover Mechanical Name Role Phone Darian Figueroa MD Primary Care Provider Allergies Active Allergy Reactions Criticality Noted Date Comments Erythromycin Swelling 09/10/2009 Hydrocodone-Acetaminophen Hives 12/10/2014 Sulfa (Sulfonamide Antibiotics) 09/14/2020 Sulfamethoxazole-Trimethopri m Hives 09/10/2009 Other Reaction(s): Rash/Dermatitis Medications LEVONORGESTREL UTRN by Intrauterine route. Active hydrOXYzine pamoate (VISTARIL) 50 mg capsule Take 1 Capsule by mouth 4 times daily as needed for Anxiety. 024 Active sertraline (ZOLOFT) 50 mg tablet Take 1 tablet (50 mg total) by mouth 1 (one) time each day. Active fluticasone propionate (FLONASE) 50 mcg/actuation nasal spray Administer 1 spray into each nostril 1 (one) time each day if needed for rhinitis. Shake gently. Before first use, prime pump. After use, clean tip and replace cap. 16 g 3 024 Active nicotine (NICODERM CQ) 14 mg/[address] 1 patch on the skin 1 (one) time each day at the same time. 30 each 1 024 Active cyclobenzaprine (FLEXERIL) 10 mg tablet Take 1 tablet (10 mg total) by mouth at bedtime as needed for muscle spasms. 30 tablet 1 12/13/2 024 Active ibuprofen (ADVIL,MOTRIN) 600 mg tablet Take 1 tablet (600 mg total) by mouth 3 (three) times a day if needed for mild pain (pain). 60 tablet 024 Active albuterol HFA (PROAIR HFA ; PROVENTIL HFA ; VENTOLIN HFA) 90 mcg/actuation inhalerIndication s:Mild persistent asthma without complication Inhale 2 puffs by mouth every 4 (four) hours if needed for wheezing or shortness of breath. 6.7 g 3 025 Active fluticasone furoate-vilantero L (BREO ELLIPTA) 100-25 mcg/dose inhaler Inhale 1 puff by mouth 1 (one) time each day. 1 each 5 025 2025 Active fexofenadine (JORGE) 180 mg tablet Take 1 tablet (180 mg total) by mouth 1 (one) time each day if needed (alleriges). 90 tablet 1 025 Active omeprazole (PriLOSEC) [address] capsule Take 1 capsule (20 mg total) by mouth 1 (one) time each day. Do not crush or chew. 90 capsule 1 025 Active ciclopirox (LOPROX) 0.77 % cream Apply thin layer to affected area BID for 2 weeks then stop. 60 g 2 025 Active amLODIPine-benaze pril (LotreL) 5-10 mg per capsule Take 1 capsule by mouth 1 (one) time each day. 90 capsule 1 025 Active ondansetron ODT (ZOFRAN-ODT) 4 mg disintegrating tablet Dissolve 1 tablet (4 mg total) on top of the tongue every 12 (twelve) hours if needed for nausea or vomiting. 30 tablet 1 025 Active ondansetron ODT (ZOFRAN-ODT) 4 mg disintegrating tablet Take 1 tablet (4 mg total) by mouth every 12 (twelve) hours if needed for nausea or vomiting. Let 1 tablet dissolve under the tongue three times daily as needed for nausea or vomiting. 10 tablet 024 2024 Discontinued(R eorder) amLODIPine (NORVASC) 5 mg tablet Take 1 tablet (5 mg total) by mouth 1 (one) time each day. 90 each 1 025 2024 Discontinued(D ose adjustment) ondansetron ODT (ZOFRAN-ODT) 4 mg disintegrating tablet Take 1 tablet (4 mg total) by mouth every 12 (twelve) hours if needed for nausea or vomiting. Let 1 tablet dissolve under the tongue three times daily as needed for nausea or vomiting. 30 tablet 025 2024 Discontinued Active Problems Problem Noted Date Diagnosed Date [...] Encounters Date Type Department Care Team Description 04/18/2025 9:00 AM EDT Office Visit Adult Medicine [address] [phone] Darian Figueroa MD Poorly-controlled hypertension (Primary Dx); Mild persistent asthma without complication; Gastroesophageal reflux disease without esophagitis; Anxiety and depression; Screening for colorectal cancer; Screening for deficiency anemia; Screening for diabetes mellitus (DM); Screening for thyroid disorder from Last 3 Months Immunizations Name Administration Dates Next Due Tdap Tetanus diptheria acell ular pertussis (Boostrix; Adacel) 7yo and older 04/16/2024,10/08/2013 Surgical History Surgery Date Site/Laterality Comments TONSILLECTOMY ADENOIDECTOMY, BILATERAL MYRINGOTOMY AND TUBES 2005 PROCEDURE: [place] TONSILLECTOMY & ADENOIDECTOMY <AGE 12; COMMENT: only 1 OTHER SURGICAL HISTORY 1992 PROCEDURE: ARTHROSCOPY PROCEDURE NEC; COMMENT: Bunion surgery SALPINGOOPHORECTOMY 2000 PROCEDURE: [place] LAPAROSCOPY W/RMVL ADNEXAL STRUCTURES; COMMENT: right tubal [...] Sign Reading Time Taken Comments Blood Pressure 158/100 04/18/2025 9:24 AM EDT Pulse 62 04/18/2025 9:01 AM EDT Temperature 36.2 C (97.1 F) 04/18/2025 9:01 AM EDT Respiratory Rate 20 12/13/2024 2:32 PM EDT Oxygen Saturation - - Inhaled Oxygen Concentration - - Weight 64.9 kg (143 lb) 04/18/2025 9:01 AM EDT Height 152.4 cm (5') 04/18/2025 9:01 AM EDT Body Mass Index 27.93 04/18/2025 9:01 AM EDT Plan of Treatment Upcoming Encounters Date Type Department Care Team (Late st Contact Info) Description 05/05/2025 10:45 AM EDT Office Visit Adult Medicine [address] [phone] Blanche Menendez PA [address] [place] [address] Health Maintenance Due Date Last Done Comments Hepatitis B Vaccines (1 of 3 - 19+ 3-dose series) 1997 Pneumococcal Vaccine: Pediatrics (0 to 5 Years) and At-Risk Patients (6 to 49 Years) (2 of 2 - PCV) 11/16/2013 11/16/2012 Cholesterol Screening (Lipid Panel) 07/10/2022 Colorectal Cancer Screening: Colonoscopy 07/10/2022 Social Influencers of Health Screening 07/10/2022 Hypertension/CHF/CAD Annual BMP Blood Test 07/12/2024 06/25/2020 Depression Screening 08/07/2024 04/16/2024 Cervical Cancer Screening: P ap Smear 03/09/2025 03/09/2022, 02/15/2012, 02/15/2012 COVID-19 Vaccine (4 - 2024-2 6 season) 2025 07/15/2021, 11/10/2020, 10/19/2020 Influenza Vaccine (#1) 2025 Breast Cancer Screening 08/06/2026 08/06/20 24, 02/16/2024, 01/22/2018 DTaP,Tdap,and Td Vaccines (4 - Td or Tdap) 04/16/2034 04/16/2024, 10/08/2013, 11/16/2012 RSV Immunization Adult Patients (1 - 1-dose 75+ series) 2053 Hepatitis C Screening Completed 02/15/2012 HIV Screening [...] DIAGNOSTIC BILAT Routine 08/06/2024 3:54 PM EST HM DEPRESSION SCREENING Routine 04/16/2024 ANNUAL BMP BLOOD TEST Routine 06/25/2020 HIV SCREENING Routine 05/01/2012 HEPATITIS C SCREENING Routine 02/15/2012 HPV Routine 02/15/2012 from Last 3 Months or Most Recently Relevant to Health Maintenance Results * MG Mammo Digital Diagnostic bilat (08/06/2024 3:54 PM EST) Anatomical Region Laterality Modality Breast Bilateral Mammography [facility] Provider IMG BI PROCEDURES Final R esult * Depression Screening (04/16/2024) Pathologist [facility] Depression Screening Abstracted [facility] Provider HEALTH MAINTENANCE Final Result * Annual BMP Blood Test (06/25/2020) Pathologist [facility] Annual BMP Blood Test Abstracted [facility] Provider HEALTH MAINTENANCE Final Result * HIV Screening (05/01/2012) [facility] HIV Screening Abstracted [facility] Provider HEALTH MAINTENANCE Final Result * Cervical Cancer Screening: HPV (02/15/2012) [facility] Cervical Cancer Screening: HPV No Interpretation , Abstracted [facility] Provider HEALTH MAINTENANCE Final Result * Hepatitis C Screening (02/15/2012) Pathologist [facility] Hepatitis C Screening Abstracted [facility] Provider HEALTH MAINTENANCE Final Result from Last 3 Months or Most Recently Relevant to Health Maintenance Insurance [facility] [employer] [place] [id number] Care Teams Developer Prover Mechanical Relationship Specialty Start Date End Date Darian Figueroa MD [address] [place] [address] PCP - General Internal Medicine 12/28/21
--- OUTSIDE RECORDS SUMMARY | 2025-04-27 14:24 | XMS_ITS | Clinical Summary ---
Author Organization [facility] Address [address] [place] [phone] Phone Care Team Providers Care Cool Roofing Installer Name Role Phone Darian Figueroa MD Primary [...] Description 06/16/2025 10:30 AM EST Office Visit [facility] [address] [place] [phone] Chaim Tran MD [address] [place] [address], [address] [address] anne Health Maintenance Due Date Last Done Comments Adult Td,Tdap Booster 1978 LIPID PANEL 1978 DEPRESSION SCREENING 1990 SMOKING Hx and SMOKELESS TOB ACCO SCREENING 1991 HEPATITIS C SCREENING 1996 HIV ONE-TIME SCREENING (18-6 5 YEARS) 1996 PAP SMEAR 1999 MAMMOGRAM 2018 COLOGUARD 2023 COLONOSCOPY 2023 COLORECTAL CANCER SCREENING 2023 FIT TEST 2023 FOBT 2023 SIGMOIDOSCOPY 2023 VIRTUAL COLONOSCOPY 2023 INFLUENZA VACCINE (#1) 2025 COVID-19 VACCINE ( - 2023-2 5 season) 2025 HEPATITIS A VACCINES Aged Out No long [...] topic Medical Devices Not on file Insurance [employer] [address] [place] [address] [address] [place] [address] [facility] [employer] [facility] [place] [address] Care Teams Cool Roofing Installer Relationship Specialty Start Date End Date Darian Figueroa MD [address] [place] [phone] PCP - General Internal Medicine 12/20/24 Additional Source Comments The information contained in this document represents components of the legal health record. It is not the complete legal health record.[facility]
== END 2025-04-27 14:19 | disposition home or self-care (01) ==
LOC: HO.MRI 14:18
PROVIDERS: Visit Provider Physical Medicine & Rehabilitation
DX: M54.9 Dorsalgia, unspecified (principal); G89.29 Other chronic pain; M53.3 Sacrococcygeal disorders, not elsewhere classified
CPT/HCPCS: 72148

== ENCOUNTER 2025-04-28 15:05 | Outpatient (AMB) | payer OTHER, SELFPAY ==
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
[2025-04-28 15:12] VITALS: BMI 29.3
== END 2025-04-28 15:33 | disposition home or self-care (01) ==
LOC: HO.HOS 15:06
PROVIDERS: Visit Provider Physician Assistant
DX: M22.2X1 Patellofemoral disorders, right knee (principal); S80.01XA Contusion of right knee, initial encounter
CPT/HCPCS: 99213; G2211

== ENCOUNTER 2025-05-07 13:24 | Outpatient (REF) | payer OTHER, SELFPAY | END 2025-05-07 13:25 | disposition home or self-care (01) | LOC: HO.LNP 13:24 | PROVIDERS: Visit Provider Advanced Practice Midwife | DX: Z01.419 Encounter for gynecological examination (general) (routine) without abnormal findings (principal); N64.59 Other signs and symptoms in breast; N64.4 Mastodynia; R23.2 Flushing; N92.1 Excessive and frequent menstruation with irregular cycle; Z12.31 Encounter for screening mammogram for malignant neoplasm of breast; Z20.2 Contact with and (suspected) exposure to infections with a predominantly sexual mode of transmission; Z32.02 Encounter for pregnancy test, result negative; Z97.5 Presence of (intrauterine) contraceptive device | CPT/HCPCS: 81025; 99396 ==

== ENCOUNTER 2025-05-07 13:24 | Outpatient (AMB) | payer OTHER, SELFPAY ==
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
[2025-05-07 13:30] VITALS: BP 114/70; BMI 29.3
--- OUTSIDE RECORDS SUMMARY | 2025-05-07 14:35 | XMS_ITS | Clinical Summary ---
Author Organization [facility] Address [address] [place] [address] Phone Care Team Providers Care Breastfeeding Program Coordinator Name Role Phone Darian Figueroa MD [...] 9:00 AM EDT Office Visit Adult Medicine [address] [phone] Darian Figueroa MD Poorly-controlled hypertension (Primary Dx); Mild persistent asthma without complication; Gastroesophageal reflux disease without esophagitis; Anxiety and depression; Screening for colorectal cancer; Screening for deficiency anemia; Screening for diabetes mellitus (DM); Screening for thyroid disorder from Last 3 Months Immunizations Immunization Administration Dates Next Due Tdap Tetanus diptheria acell ular pertussis (Boostrix; Adacel) 7yo and older 04/16/2024,10/08/2013 Surgical History Surgery Date Site/Laterality Comments TONSILLECTOMY ADENOIDECTOMY, BILATERAL MYRINGOTOMY AND TUBES 2005 PROCEDURE: OR TONSILLECTOMY & ADENOIDECTOMY <AGE 12; COMMENT: only 1 OTHER SURGICAL HISTORY 1992 PROCEDURE: ARTHROSCOPY PROCEDURE NEC; COMMENT: Bunion surgery SALPINGOOPHORECTOMY 2000 PROCEDURE: OR LAPAROSCOPY W/RMVL ADNEXAL STRUCTURES; COMMENT: right tubal [...] 04/18/2025 9:01 AM EDT Plan of Treatment Health Maintenance Due Date Last Done Comments Colorectal Cancer Screening: Colonoscopy 1978 Hepatitis B Vaccines (1 of 3 - 19+ 3-dose series) 1997 Pneumococcal Vaccine: Pediatrics (0 to 5 Years) and At-Risk Patients (6 to 49 Years) (2 of 2 - PCV) 11/16/2013 11/16/2012 Cholesterol Screening (Lipid Panel) 07/10/2022 Social Influencers of Health Screening 07/10/2022 Hypertension/CHF/CAD Annual BMP Blood Test 07/12/2024 06/25/2020 Depression Screening 08/07/2024 04/16/2024 Cervical Cancer Screening: P ap Smear 03/09/2025 03/09/2022, 02/15/2012, 02/15/2012 COVID-19 Vaccine (2024-2 6 season) 2025 07/15/2021, 11/10/2020, 10/19/2020 Influenza [...] [facility] Depression Screening Abstracted [facility] Provider HEALTH MAINTENANCE Final Result * Annual BMP Blood Test (06/25/2020) [facility] Annual BMP Blood Test Abstracted [facility] Provider HEALTH MAINTENANCE Final Result * HIV Screening (05/01/2012) [facility] HIV Screening Abstracted Result [facility] Provider HEALTH MAINTENANCE Final Result * Cervical Cancer Screening: HPV (02/15/2012) [facility] Cervical Cancer Screening: HPV No Interpretation , Abstracted [facility] Provider HEALTH MAINTENANCE Final Result * Hepatitis C Screening (02/15/2012) [facility] Hepatitis C Screening Abstracted [facility] Provider HEALTH MAINTENANCE Final Result from Last 3 Months or Most Recently Relevant to Health Maintenance Insurance [facility] [employer] AUT[employer] GENER[employer] Care Teams Breastfeeding Program Coordinator Relationship Specialty Start Date End Date Darian Figueroa MD [address] [place] [address] PCP - General Internal Medicine 12/28/21
--- OUTSIDE RECORDS SUMMARY | 2025-05-07 14:35 | XMS_ITS | Clinical Summary ---
Author Organization [facility] Address [address] [place] [address] Phone Care Team Providers Care Dining Room Server Name Role Phone Darian Figueroa MD Primary [...] Description 06/16/2025 10:30 AM EST Office Visit [facility] [address] [place] [phone] Chaim Tran MD [address] [place] [address], [address] [address] [place] Health Maintenance Due Date Last Done [...] topic Medical Devices Not on file Insurance [employer] [address] [place], [place] [address] [address] [address] [place] [address] [facility] [employer] ACO [facility] A[facility] Care Teams Dining Room Server Relationship Specialty Start Date End Date Darian Figueroa MD [address] [place] [phone] PCP - General Internal Medicine 12/20/24 Additional Source Comments The information contained in this document represents components of the legal health record. It is not the complete legal health record.[facility]
== END 2025-05-07 14:32 | disposition home or self-care (01) ==
LOC: HO.HWS 13:24
PROVIDERS: Visit Provider Advanced Practice Midwife
DX: Z01.419 Encounter for gynecological examination (general) (routine) without abnormal findings (principal); N64.59 Other signs and symptoms in breast; N64.4 Mastodynia; R23.2 Flushing; Z32.02 Encounter for pregnancy test, result negative
CPT/HCPCS: 99396; 99459

== ENCOUNTER 2025-05-07 14:06 | Outpatient (REF) | payer OTHER, SELFPAY ==
[2025-05-07 15:46] LABS: Thyroid Stimulating Hormone 0.73 uIU/mL (0.32-4.0)
[2025-05-08 03:38] LABS: Follicle Stimulating Hormone 45.9 mIU/mL
[2025-05-08 04:28] LABS: Syphilis Screen Nonreactive (Nonreactive)
[2025-05-08 04:40] LABS: HBc Num1 0.05 S/CO (0.00-0.79); HIV Num 1 0.06 S/CO (0.00-0.99); ~HepC Num1 0.09 S/CO (0.00-0.79); ~Hepatitis C Antibody Nonreactive (Nonreactive)
[2025-05-08 06:00] LABS: Bacterial Vaginosis PCR POSITIVE (Negative); Candida Group PCR NOT DETECTED (Not Detect); Candida glab krusei PCR NOT DETECTED (Not Detect); Trichomonas vaginalis PCR NOT DETECTED (Not Detect)
[2025-05-08 06:31] LABS: CT PCR NOT DETECTED (Not Detect.); NG PCR NOT DETECTED (Not Detect.)
== END 2025-05-07 14:07 | disposition home or self-care (01) ==
LOC: HO.LAB 14:06
PROVIDERS: PCP Internal Medicine; Visit Provider Advanced Practice Midwife
DX: Z01.84 Encounter for antibody response examination (principal); Z11.4 Encounter for screening for human immunodeficiency virus [HIV]; Z11.59 Encounter for screening for other viral diseases; N92.1 Excessive and frequent menstruation with irregular cycle; R23.2 Flushing; Z20.2 Contact with and (suspected) exposure to infections with a predominantly sexual mode of transmission
CPT/HCPCS: 36415; 81515; 83001; 83002; 84443; 86704; 86780; 86803; 87389; 87491; 87591

== ENCOUNTER 2025-06-13 08:30 | Outpatient (AMB) | payer OTHER, SELFPAY ==
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
[2025-06-13 08:41] VITALS: BMI 29.3
--- OUTSIDE RECORDS SUMMARY | 2025-06-13 09:05 | XMS_ITS | Clinical Summary ---
Author Organization [facility] Address [address] [place] [phone] Phone Care Team Providers Care Rn Document Improvement Specialist Name Role Phone Darian Figueroa MD Primary [...] Description 06/16/2025 10:30 AM EST Office Visit [facility] [address] [place] [phone] Chaim Tran MD [address] [place] [address], [address] [address] [place] Health Maintenance Due Date Last Done [...] VACCINE (#1) 2025 COVID-19 VACCINE ( - 2024-2 6 season) 2025 HEPATITIS A VACCINES Aged Out [...] topic Medical Devices Not on file Insurance [employer] ACO [employer] [address] [place], [place] [id number] [address] [place] [id number] [facility] ACO Care Teams Rn Document Improvement Specialist Relationship Specialty Start Date End Date Darian Figueroa MD [address] [place] [phone] PCP - General Internal Medicine 12/20/24 Additional Source Comments The information contained in this document represents components of the legal health record. It is not the complete legal health record.[facility]
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
== END 2025-06-13 09:06 | disposition home or self-care (01) ==
LOC: HO.HOS 08:30
PROVIDERS: Visit Provider Physical Medicine & Rehabilitation
DX: M54.50 Low back pain, unspecified (principal); G89.29 Other chronic pain; M53.3 Sacrococcygeal disorders, not elsewhere classified
CPT/HCPCS: 99214

== ENCOUNTER → 2025-06-13 08:30 | Outpatient (BNVA) | payer OTHER, SELFPAY | PROVIDERS: Visit Provider Physical Medicine & Rehabilitation | DX: M54.50 Low back pain, unspecified (principal); M53.3 Sacrococcygeal disorders, not elsewhere classified; G89.29 Other chronic pain | CPT/HCPCS: 99212 ==

== ENCOUNTER 2025-06-27 11:39 | Outpatient (AMB) | payer OTHER, SELFPAY ==
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
[2025-06-27 11:47] VITALS: BP 150/86; PULSE 71; O2SAT 100; BMI 28.8
--- OUTSIDE RECORDS SUMMARY | 2025-06-27 12:26 | XMS_ITS | Clinical Summary ---
Author Organization [facility] Address [address] [place] [address] Phone Care Team Providers Care Handbag Stitcher Name Role Phone Darian Figueroa MD Primary [...] Care Team (Late st Contact Info) Description 11/17/2025 2:30 PM EDT Office Visit [facility] [address] [place] [id number] Chaim Tran MD [address] [place] [id number] anne Health Maintenance Due Date Last Done [...] patient's age to complete this topic IPV VACCINES Aged Out No longer eligi ble [...] topic Medical Devices Not on file Insurance [employer] [place] [address] [place] [address] Pets are family tooY [employer] ACO [facility] [employer] Member Subscriber Plan / Payer (Ef fective 2024-Present) Name:Owen Russo Relation to Subscriber:Self Name:Owen Russo Payer ID:[id number] Group ID:[id number] Type:Medicaid Address: [place] [id number] [facility] [employer] [facility] [employer] [place] [address] Care Teams Handbag Stitcher Relationship Specialty Start Date End Date Darian Figueroa MD [address] [place] [id number] PCP - General Internal Medicine 12/20/24 Additional Source Comments The information contained in this document represents components of the legal health record. It is not the complete legal health record.[facility]
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
== END 2025-06-27 12:11 | disposition home or self-care (01) ==
LOC: HO.PMC 11:39
PROVIDERS: PCP Internal Medicine; Visit Provider Nurse Practitioner Family
DX: M54.50 Low back pain, unspecified (principal); G89.29 Other chronic pain; M22.2X1 Patellofemoral disorders, right knee; M25.561 Pain in right knee
CPT/HCPCS: 99204

== ENCOUNTER → 2025-06-27 11:39 | Outpatient (BNVA) | payer OTHER, SELFPAY | PROVIDERS: PCP Internal Medicine; Visit Provider Nurse Practitioner Family | DX: M54.50 Low back pain, unspecified (principal); G89.29 Other chronic pain; M22.2X1 Patellofemoral disorders, right knee; M25.561 Pain in right knee | CPT/HCPCS: 99202 ==

== ENCOUNTER 2025-07-12 10:46 | Outpatient (REF) | payer OTHER, SELFPAY ==
--- NOTE | ~2025-07-12 | US_ITS ---
CLINICAL HISTORY: N83.209 - Unspecified ovarian cyst, unspecified side US PELVIS TRANSABDOMINAL AND TRANSVAGINAL Comparison: None provided Findings: Transabdominal scanning performed for overall anatomy. Transvaginal scanning performed for additional detail. The uterus measures 8.1 cm in length. No measurable myometrial lesion. The IUD appears in satisfactory position. There is ill-defined heterogeneity in the cervix associated with multiple tiny cysts. Right ovary 3.5 x 3.0 x 3.0 cm. There is a 3.1 x 2.8 x 2.5 cm cystic lesion with solitary septation. Left ovary 2.3 x 0.8 x 9.4 cm. Normal color Doppler of both ovaries. Prominent adnexal vessels bilaterally can be seen with pelvic congestion. IMPRESSION: 1. 3.1 cm septated cyst in the right ovary. Recommend follow-up pelvic ultrasound in 6-12 weeks. 2. Color flow observed in the bilateral ovaries. 3. IUD appears in satisfactory position. 4. Heterogeneity with tiny cystic changes in the cervix could be related to a cluster of nabothian cysts. More ominous process is not entirely excluded. Recommend correlation with a bimanual exam and Pap smear. This document has been electronically signed by: Trena Yao DO on 07/12/2025 12:53:40
--- OUTSIDE RECORDS SUMMARY | 2025-07-12 10:48 | XMS_ITS | Clinical Summary ---
Author Organization [facility] Address [address] [place] [address] Phone Care Team Providers Care Finisher Map And Chart Name Role Phone Darian Figueroa MD Primary [...] Description 11/17/2025 2:30 PM EDT Office Visit [facility] [address] [place] [address] Chaim Tran MD [address] [place] [phone] anne Health Maintenance Due Date Last Done [...] topic Medical Devices Not on file Insurance [email or web address] [address] [place] [address] [employer] [facility] [employer] Member Subscriber Plan / Payer (Ef fective 2024-Present) Name:Owen Russo Relation to Subscriber:Self Name:Owen Russo Payer ID:[id number] Group ID:[id number] Type:Medicaid Address: [place] [id number] [facility] [employer]ANCE [employer] [facility] ANTHONY [facility] Care Teams Finisher Map And Chart Relationship Specialty Start Date End Date Darian Figueroa MD [address] [place] [phone] PCP - General Internal Medicine 12/20/24 Additional Source Comments The information contained in this document represents components of the legal health record. It is not the complete legal health record.[facility]
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
== END 2025-07-12 10:47 | disposition home or self-care (01) ==
LOC: HO.US 10:46
PROVIDERS: PCP Internal Medicine; Visit Provider Advanced Practice Midwife
DX: N83.209 Unspecified ovarian cyst, unspecified side (principal)
CPT/HCPCS: 76830; 76856

== ENCOUNTER → 2025-07-12 10:47 | Outpatient (BNV) | payer OTHER, SELFPAY | PROVIDERS: PCP Internal Medicine; Visit Provider Radiology Diagnostic Radiology | DX: N83.291 Other ovarian cyst, right side (principal); N88.8 Other specified noninflammatory disorders of cervix uteri; Z97.5 Presence of (intrauterine) contraceptive device | CPT/HCPCS: 76830; 76856 ==

== ENCOUNTER 2025-07-16 11:17 | Outpatient (AMB) | payer OTHER, SELFPAY ==
--- NOTE | 2025-07-16 11:23 | MHC.OFFVIS ---
Intake Visit Reasons: u/s follow up Allergies acetaminophen (From Vicodin) Allergy (Severe, Verified 06/27/25 11:46) Hives, Tongue swelling hydrocodone (From Vicodin) Allergy (Severe, Verified 06/27/25 11:46) Hives, Tongue swelling azithromycin (AZITHROMYCIN) Allergy (Unknown, Verified 06/27/25 11:46) Unknown erythromycin base (ERYTHROMYCIN BASE) Allergy (Unknown, Verified 06/27/25 11:46) Liver Inflammation Sulfa (Sulfonamide Antibiotics) Allergy (Unknown, Verified 06/27/25 11:46) Hives sulfamethoxazole (From Bactrim) Allergy (Unknown, Verified 06/27/25 11:46) Liver Inflammation trimethoprim (From Bactrim) Allergy (Unknown, Verified 06/27/25 11:46) Liver Inflammation [facility] Medical History Hot flashes IUD (intrauterine device) in place Abnormal Pap smear of cervix Opioid use disorder Family History Father Stroke Heart attack Diabetes Maternal Aunt Breast cancer Social History Household Members: Spouse and Children Housing: House Alcohol intake: never Patient Tobacco Use Status: Current everyday Tobacco user Tobacco use type: Cigarette Cigarettes Per Day: 4 Years Smoked: 20 Current occupational status: employed 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
--- NOTE | 2025-07-16 11:34 | A.OFFVIS_ITS ---
Intake Visit Reasons: u/s follow up Forest Technician Required: No Information Interpreted: non-clinical & clinical Benefits Technician: Benefits Technician Present Allergies acetaminophen (From Vicodin) Allergy (Severe, Verified 07/16/25 11:57) Hives, Tongue swelling hydrocodone (From Vicodin) Allergy (Severe, Verified 07/16/25 11:57) Hives, Tongue swelling azithromycin (AZITHROMYCIN) Allergy (Unknown, Verified 07/16/25 11:57) Unknown erythromycin base (ERYTHROMYCIN BASE) Allergy (Unknown, Verified 07/16/25 11:57) Liver Inflammation Sulfa (Sulfonamide Antibiotics) Allergy (Unknown, Verified 07/16/25 11:57) Hives sulfamethoxazole (From Bactrim) Allergy (Unknown, Verified 07/16/25 11:57) Liver Inflammation trimethoprim (From Bactrim) Allergy (Unknown, Verified 07/16/25 11:57) Liver Inflammation Is last menstrual period known: Yes HPI Comments Details: Tele Health Visit Total time I personally spent on visit and management today: 14 minutes. Time spent included review of pertinent office notes in the electronic health record; review of laboratory and imaging results; review of personal family medical history; discussing diagnosis and plan of care with the patient; documenting the encounter in the EMR. Patient presents to discuss: Ultrasound follow up, history of left-sided pelvic pain. Recently treated for BV and is feeling better. 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 Sexual orientation: Straight/Heterosexual Gender identity: Female Review of Systems Const All systems reviewed & are unremarkable except as noted in HPI and below Endo Reports no additional complaints Physical Exam Const General: cooperative, healthy appearing and no acute distress Psych Appearance: well kempt Attitude: cooperative Thought process: Normal thought process present Telehealth Telehealth Telehealth Platform: iZoca Location of provider rendering services: practice address Location of patient: address on file Patient Identification confirmed using: Name, : Yes Telehealth method: video Patient verbally consented to treatment: Yes Patient verbally consented to billing insurance company: Yes Patient informed of any privacy concerns related to visit: Yes Results Reviewed Results Reviewed: [address] [address] Ultrasound Report Signed Patient: Owen Russo MR#: [id number] : 1980 Acct:[id number] Age/Sex: 45 / F ADM Date: 07/12/25 Loc: HO.US Attending Dr: Lindsey Castellanos CNM Ordering Physician: Lindsey Castellanos CNM Date of Service: 07/12/25 Procedure(s): US pelvic and transvaginal Accession Number(s): [id number] cc: Darian Figueroa MD; Lindsey Castellanos CNM~ Reason for Exam: N83.209 - Unspecified ovarian cyst, unspecified side CLINICAL HISTORY: N83.209 - Unspecified ovarian cyst, unspecified side US PELVIS TRANSABDOMINAL AND TRANSVAGINAL Comparison: None provided Findings: Transabdominal scanning performed for overall anatomy. Transvaginal scanning performed for additional detail. The uterus measures 8.1 cm in length. No measurable myometrial lesion. The IUD appears in satisfactory position. There is ill-defined heterogeneity in the cervix associated with multiple tiny cysts. Right ovary 3.5 x 3.0 x 3.0 cm. There is a 3.1 x 2.8 x 2.5 cm cystic lesion with solitary septation. Left ovary 2.3 x 0.8 x 9.4 cm. Normal color Doppler of both ovaries. Prominent adnexal vessels bilaterally can be seen with pelvic congestion. IMPRESSION: 1. 3.1 cm septated cyst in the right ovary. Recommend follow-up pelvic ultrasound in 6-12 weeks. 2. Color flow observed in the bilateral ovaries. 3. IUD appears in satisfactory position. 4. Heterogeneity with tiny cystic changes in the cervix could be related to a cluster of nabothian cysts. More ominous process is not entirely excluded. Recommend correlation with a bimanual exam and Pap smear. This document has been electronically signed by: Trena Yao on 07/12/2025 12:53:40 Dictated By: Trena Yao MD Signed By: <Electronically signed by Trena Yao MD in OV> 07/12/25 1254 DD/ 1253 TD/TT: 07/12/25 1253 Heel Top Lift Splitter: Assessment & Plan Assessment & Plan (1) Ovarian cyst: Code(s): N83.209 - Unspecified ovarian cyst, unspecified side Category: Medical Qualifiers: Laterality: right Qualified Code(s): N83.201 - Unspecified ovarian cyst, right side Plan Discussed: Ultrasound findings- IMPRESSION: 1. 3.1 cm septated cyst in the right ovary. Recommend follow-up pelvic ultrasound in 6-12 weeks. 2. Color flow observed in the bilateral ovaries. 3. IUD appears in satisfactory position. 4. Heterogeneity with tiny cystic changes in the cervix could be related to a cluster of nabothian cysts. More ominous process is not entirely excluded. Recommend correlation with a bimanual exam and Pap smear. Counseled regarding findings of: Complex ovarian cyst, which is often benign, and most resolve on their own overtime. Some develop into premalignant or malignant tumors. Limitations of testing for diagnostic purposes. Further monitoring and evaluation is recommended with US, possible CT, or MRI study. If persists, or is indicated (Ca-125, Carbohydrate Antigen 19-9, & Carcinoembryonic Antigen) labs will be ordered and referral to [facility] or general gynecology for MD care if indicated for possible surgical consult. Follow up in person for test results. Report any pain on the right side, call if there is any other concerns. All of her questions and concerns were addressed to the best of my ability and shared decision making. She is agreeable to the plan of care. This note is constructed using voice recognition software. While every effort has been made to ensure accuracy, paperboard boxes estimator errors may have been included. Orders: Orders US pelvic and transvaginal 09/08/25 N83.201 - Unspecified ovarian cyst, right side Coding Level of Care Code Tele Est Pt Level 3 (73828) Diagnoses Cyst of right ovary N83.201 Laterality: right
--- OUTSIDE RECORDS SUMMARY | 2025-07-16 18:06 | XMS_ITS | Clinical Summary ---
Author Organization [facility] Address [address] [place] [address] Phone Care Team Providers Care Bath Tester Name Role Phone Darian Figueroa MD Primary Care Provider Social History Tobacco Use Types Packs/Day Years Used Date Smoking Tobacco: Never Assessed Education Answer Date Recorded Are you interested in more education? Not on uhsam e 12/24/2024 Are you concerned about learning? [...] Description 11/17/2025 2:30 PM EDT Office Visit [facility] [address] [place] [address] Chaim Tran MD [address] [place] [address] anne Health Maintenance Due Date Last Done [...] topic Medical Devices Not on file Insurance [employer] [place] [address] [address] [employer] [facility] [email or web address] Member Subscriber Plan / Payer (Ef fective 2024-Present) Name:Owen Russo Relation to Subscriber:Self Name:Owen Russo Payer ID:[id number] Group ID:[id number] Type:Medicaid Address: [place] [id number] [facility] [email or web address] [facility] ANTH[employer]Y [facility] ACO Care Teams Bath Tester Relationship Specialty Start Date End Date Darian Figueroa MD [address] [place] [phone] PCP - General Internal Medicine 12/20/24 Additional Source Comments The information contained in this document represents components of the legal health record. It is not the complete legal health record.[facility]
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
== END 2025-07-16 12:52 | disposition home or self-care (01) ==
PROVIDERS: PCP Internal Medicine; Visit Provider Advanced Practice Midwife
DX: N83.201 Unspecified ovarian cyst, right side (principal)
CPT/HCPCS: 99213